=== PATIENT | female | born 1965 | race Caucasian/White ===

== ENCOUNTER 2023-07-08 16:33 | Inpatient (IN) | payer OTHER, MEDICAID, SELFPAY ==
[2023-07-08 12:47] VITALS: BP 128/67
--- NOTE | 2023-07-08 13:44 | ED.SKININJ ---
HPI-Injury
<Aiyana Gould PA-C - Last Filed: 07/08/23 16:16>
General
Chief Complaint: Bite
Source: patient
Exam Limitations: none
Time Seen by Provider: 07/08/23 13:44
Nursing documentation reviewed up to this point in time: agreed with
Travel History
Have you had any contact with someone who has COVID-19?: No
Do you have any symptoms of coronavirus? Fever > 100 degrees, chills, cough, shortness of breath, sore throat, loss of taste or smell, muscle aches, or headache?: No
History of Present Illness-Injury
Initial Injury comments:
57-year-old female with a past medical history of migraines, asthma, hypertension, presenting to the emergency department today with concerns of a dog bite on her right lower extremity. Patient states that 7 days ago, she was trying to break up a
fight between her 2 small dogs when she them and she was bitten by her 1 dog on her right loredo. Patient states that she cleaned at the time, and then she was having a lot of pain, so she went to her urgent care 2 days later. When seen in
urgent care, she was started on Augmentin. She took her fifth dose of today. Patient has some associated chills, and nausea, but no vomiting. She states that she has been eating less, and feels dehydrated. Patient states that since urgent care a
few days ago, her pain has been getting significantly worse, and her wound has started to develop surrounding redness and swelling and now looks ulcerated.
Past History
<Aiyana Gould PA-C - Last Filed: 07/08/23 16:16>
Past History
ED Past Medical History: Asthma, Fibromyalgia, HTN, NIDDM (Diet controlled byfore gastric bypass), Other (Recurrent C. difficile enterocolitis. , Chronic abdominal pain with narcotic dependence, Chronic colitis Cellulitis, kidney stones, UTIs) and
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
ED Past Surgical History: Appendectomy, Bowel resection (Gastric bypass), Cholecystectomy, Gynecological (Hysterectomy with bladder lift), Orthopedic (Right ankle sugery), Urological (Lithotripsy with bilateral ureteral stents November 2016) and Other
(Gastric bypass , ureteroscopy with bilateral ureteral stents placed September 2009. Left renal pelvis lithotripsy October 10, 2009. Abd mesh placed after hernia repair,)
Social History
Tobacco: Former smoker
Alcohol: Occasional
Drug: None
Personal:
Living: with family
Employment: Public assistance
Family History
Family History: Other (One rectal cancer, COPD )
Review of Systems
<AMIRAH Oliveira Last Filed: 07/08/23 16:16>
Review of Systems
All Other Systems: ROS reviewed and negative except as documented in HPI and ROS
Phy Exam
<AMIRAH Oliveira Last Filed: 07/08/23 16:16>
Physical Exam
Physical Exam:
Vitals: Vitals are stable, patient is afebrile
General: Patient appears older than stated age, nontoxic appearing
Skin: there is a 2 cm ulcerated wound on the right anterior leg with surrounding swelling and erythema that extends down to the ankle.
Cardiac: Regular rate and rhythm, no murmurs
Peripheral vascular: Patient has 2+ dorsalis pedis and posterior tibial pulses bilaterally. Patient has some mild lower extremity edema bilaterally.
Pulm: Normal respiratory effort, no wheezes, rales, rhonchi
Abdomen: Patient is no abdominal tenderness.
Musculoskeletal: See skin exam above. Patient has no tibial bony tenderness.
Neuro: AAOx3, CN II-XII intact.
Course
<AMIRAH Oliveira Last Filed: 07/08/23 16:16>
Orders/Labs/Results
Orders:
Orders
07/08/23 14:03
0.9% Sodium Chloride 1000 ml [Nss] 1,000 ml IV BOLUS
HYDROmorphone [Dilaudid] 0.5 mg IV NOW STA
Ondansetron Injectable [Zofran] 4 mg IV NOW STA
07/08/23 14:06
Tetanus/Diphth/Acelpertussis [Adacel] 0.5 ml IM .ONCE ONE
07/08/23 14:33
Complete Blood Count/With Diff Urgent
Comprehensive Metabolic Panel Urgent
07/08/23 14:56
Blood Culture Q30M
YI Source: Blood/Venous
Specimen Description:
07/08/23 15:04
Blood Culture Q30M
YI Source: Blood/Venous
Specimen Description:
07/08/23 16:19
Ampicillin/Sulbactam 3 G [Unasyn] 3 gm 0.9% Sodium Chloride 100 ml [Nss] 100 ml IV NOW
07/08/23 16:24
Admit/Transfer Patient As Directed
Co-Sign Provider:
Level of Care: Inpatient admission
Assign to:: Medical/Surgical
Physician / Group: clare
Diagnosis: dog bite cellulitis
Reason for Hospitalization: dog bite cellulitis
Expected length of stay greater than two midnights?: Yes
ELOS- Estimated Length of Stay in days: 2
I certify the patient meets the requirements for IP care: Yes
07/08/23 16:25
Code Status As Directed
Resuscitation Status: Full Code
Abnormal Lab Results
07/08/23
14:33
RBC 4.09 L 10^6/uL
(4.20-5.40)
Hgb 11.6 L g/dL
(12.0-16.0)
Hct 34.9 L %
(37.0-47.0)
RDW 14.6 H %
(11.5-14.5)
Sodium 134 L mmol/L
(135-145)
Potassium 3.4 L mmol/L
(3.5-5.1)
Creatinine 0.5 L mg/dL
(0.6-1.0)
AST 46 H U/L
(14-36)
07/08/23 14:33
07/08/23 14:33
Vital Signs
Initial and Last Documented VS:
Initial Vital Signs
Temp Pulse Resp BP Pulse Ox
98.0 F 75 18 128/67 100
07/08/23 12:47 07/08/23 12:47 07/08/23 12:47 07/08/23 12:47 07/08/23 12:47
Last Documented Vital Signs
Temp Pulse Resp BP Pulse Ox
98.0 F 75 18 128/67 100
07/08/23 12:47 07/08/23 12:47 07/08/23 12:47 07/08/23 12:47 07/08/23 12:47
<Tomás Peace MD - Last Filed: 07/08/23 16:46>
Orders/Labs/Results
Orders:
Orders
07/08/23 14:03
0.9% Sodium Chloride 1000 ml [Nss] 1,000 ml IV BOLUS
HYDROmorphone [Dilaudid] 0.5 mg IV NOW STA
Ondansetron Injectable [Zofran] 4 mg IV NOW STA
07/08/23 14:06
Tetanus/Diphth/Acelpertussis [Adacel] 0.5 ml IM .ONCE ONE
07/08/23 14:33
Complete Blood Count/With Diff Urgent
Comprehensive Metabolic Panel Urgent
07/08/23 14:56
Blood Culture Q30M
YI Source: Blood/Venous
Specimen Description:
07/08/23 15:04
Blood Culture Q30M
YI Source: Blood/Venous
Specimen Description:
07/08/23 16:19
Ampicillin/Sulbactam 3 G [Unasyn] 3 gm 0.9% Sodium Chloride 100 ml [Nss] 100 ml IV NOW
07/08/23 16:24
Admit/Transfer Patient As Directed
Co-Sign Provider:
Level of Care: Inpatient admission
Assign to:: Medical/Surgical
Physician / Group: clare
Diagnosis: dog bite cellulitis
Reason for Hospitalization: dog bite cellulitis
Expected length of stay greater than two midnights?: Yes
ELOS- Estimated Length of Stay in days: 2
I certify the patient meets the requirements for IP care: Yes
07/08/23 16:25
Code Status As Directed
Resuscitation Status: Full Code
Abnormal Lab Results
07/08/23
14:33
RBC 4.09 L 10^6/uL
(4.20-5.40)
Hgb 11.6 L g/dL
(12.0-16.0)
Hct 34.9 L %
(37.0-47.0)
RDW 14.6 H %
(11.5-14.5)
Sodium 134 L mmol/L
(135-145)
Potassium 3.4 L mmol/L
(3.5-5.1)
Creatinine 0.5 L mg/dL
(0.6-1.0)
AST 46 H U/L
(14-36)
07/08/23 14:33
07/08/23 14:33
Vital Signs
Initial and Last Documented VS:
Initial Vital Signs
Temp Pulse Resp BP Pulse Ox
98.0 F 75 18 128/67 100
07/08/23 12:47 07/08/23 12:47 07/08/23 12:47 07/08/23 12:47 07/08/23 12:47
Last Documented Vital Signs
Temp Pulse Resp BP Pulse Ox
98.0 F 75 18 128/67 100
07/08/23 12:47 07/08/23 12:47 07/08/23 12:47 07/08/23 12:47 07/08/23 12:47
<Aiyana Gould PA-C - Last Filed: 07/08/23 16:16>
MDM/Problems Addressed
Differential Diagnosis Includes:
Differentials include cellulitis, abscess, DVT, erysipelas
MDM/Problems Addressed:
Bite wound
Chronic conditions affecting care: HTN and Asthma
Acute Exacerbation and/or Progression of Chronic Illness: HTN
<Aiyana Gould PA-C - Last Filed: 07/08/23 16:16>
*Pulse Oximetry
Patient hypoxic: no
*Critical Care Note
Total Time (30-74mins, 75-104mins- exclusive of procedures): Not Applicable
Data Reviewed
Review of Other/Old Records Reveals: Records (Reviewed ER physician documentation from 10/15/2022, reviewed ER physician documentation from 04/13/2022) and Discharge Summary (Reviewed discharge planning summary from 10/17/2022)
Source: patient and records
<AMIRAH Oliveira Last Filed: 07/08/23 16:16>
Patient Management
Escalation/DeEscalation of care consider admission/obs:
57-year-old female with a past medical history of migraines, asthma, hypertension, presenting to the emergency department today with concerns of a dog bite on her right lower extremity. Patient was started on Augmentin as an outpatient and received
5 doses, with no improvement. Patient also started to develop systemic signs and symptoms. Patient currently afebrile. Will admit for IV antibiotic therapy, spoke to hospitalist who accepted patient.
<AMIRAH Oliveira Last Filed: 07/08/23 16:16>
Update Note
Update Note:
3:24 pm--reevaluate patient, patient states that her pain has improved, but she still feels uncomfortable.
4:00 pm-- spoke to patient regarding plans for dispo, outpatient flagyl + doxy vs admission for IV antibiotics, patient opting for admission for IV antibiotics due to her significant GI intolerance oral antibiotics with her history of gastric
bypass, as well as her significant discomfort and feeling outpatient therapy.
ED Attending Note
<Aiyana Gould PA-C - Last Filed: 07/08/23 16:16>
-
Portions of this chart may have been created with voice recognition software.� Occasional wrong word or��sound alike� substitutions may have occurred due to the inherent limitations of voice recognition software.
<Tomás Peace MD - Last Filed: 07/08/23 16:46>
ED Attending Note
Patient seen and examined by attending physician: Yes
ED Attending Note:
Patient presents to ED secondary to worsening right lower leg pain with redness and swelling, after accidental dog bite 3 days ago. Patient was seen on the day of the accident at urgent care center, where she was prescribed Augmentin. Patient has
taken total of 5 doses, including this morning. Denies fever, but admits to chills sensation along with intermittent nausea. Denies vomiting or diarrhea. Patient states that she was bitten by her own dog, when she tried to break up the fight
between multiple dogs. Denies any unusual behaviors around dog, whose vaccinations are up-to-date. Patient herself however, does not know when her last tetanus vaccination was. Patient does have history of previous 'sepsis' secondary to
'cellulitis'.
Physical Exam
General: mild distress, not acutely ill. afebrile
Head: nc/at. eomi
Neck: supple. no meningeal signs.
Abdomen: normal bowel sounds. not tender.
Neuro: alert and oriented. no focal neurological deficits
Skin: RLE: healing/ulcerated wound noted, approx 1cm diameter, along anterior aspect with surrounding/erythema, with moderate tenderness.
Psychiatric: well kept. interactive and cooperative
Extremities: no edema. no calf tenderness.
Will check blood work, provide ivf/analgesia, and reassess
Patient will be admitted for cellulitis, secondary to dog bite, failed outpatient therapy.
Discharge Plan
Departure
Patient Disposition: Admit
Date of Disposition: 07/08/23
Time of Disposition: 16:04
Admit to: Med/Surg
Presentation/result/management discussed w/ accepting MD/DO: Hospitalist
Patient with high blood pressure during this ER visit?: Yes
Condition: Good
Discharge Problem:
Cellulitis, Dog bite
Interventions
Interventions:
*Risk Screen - Suicide Last Done: 07/08/23 16:41
*General Assessment Last Done: 07/08/23 16:41
*Neglect/Abuse Screening Last Done: 07/08/23 16:43
*ED COVID-19 Vaccine History Last Done: 07/08/23 16:41
ED-Skin Assessment Last Done: 07/08/23 15:54
[2023-07-08 14:54] LABS: % Basophils 0.4 % (0-2); % Eosinophils 0.3 % (0-6); % Immature Granulocytes 0.2 % (0-0.5); % Monocytes 5.3 % (1.7-9.3); % Neutrophils 68.8 % (42.2-75.2); Absolute Lymphocytes 2.3 10^3/uL (1.2-3.4); Absolute Monocytes 0.5 10^3/uL (0.1-0.6); Absolute Neutrophils 6.2 10^3/uL (1.4-6.5); Hematocrit 34.9 % (37.0-47.0); Hemoglobin 11.6 g/dL (12.0-16.0); Mean Corp Hgb Conc. 33.2 g/dL (33.0-37.0); Mean Corpuscular Hgb 28.4 pg (27.0-31.0); Mean Corpuscular Volume 85.3 fL (81.0-99.0); Nucleated Red Blood Cells % 0 %; Platelet Count 221 10^3/uL (130-400); Red Blood Cell Count 4.09 10^6/uL (4.20-5.40); Red Cell Dist. Width 14.6 % (11.5-14.5)
[2023-07-08] MEDS: NSS 1000 IV (15:06)
[2023-07-08] MEDS: DILAUDID 0.5 MG IV ×2 (15:09→20:58)
[2023-07-08] MEDS: ZOFRAN 4 MG IV (15:09)
[2023-07-08 15:20] LABS: ALT (SGPT) 23 U/L (0-35); AST (SGOT) 46 U/L (14-36); Alkaline Phosphatase 74 U/L (38-126); Blood Urea Nitrogen 12 mg/dl (7-17); Calcium 8.4 mg/dl (8.4-10.2); Carbon Dioxide 24 mmol/L (22-30); Chloride 104 mmol/L (98-107); Glucose 94 mg/dl (70-99); Potassium 3.4 mmol/L (3.5-5.1); Sodium 134 mmol/L (135-145); Total Bilirubin 0.4 mg/dl (0.2-1.3); Total Protein 6.4 g/dl (6.3-8.2); eGFR > 60.00
--- NOTE | 2023-07-08 16:31 | HPS.HSE ---
Addendum entered and electronically signed by Celestine Campbell MD 07/08/23 16:35:
Continue hydroxychloroquine for colitis.
Original Note:
Family Physician
-
Family Physician: Kathy Doherty
Chief Complaint
-
dog bite
History of Present Illness
57-year-old female with past medical history of nephrolithiasis, chronic colitis, C. difficile, anxiety/depression, GERD, hypertension, type 2 diabetes, asthma, migraines, fibromyalgia, DVT, chronic skin granulomas, presenting after dog bite on her
right lower extremity. 6 days ago she was trying to break up a fight between her 2 small dogs when she was bitten by dog on her right loredo. She cleaned the area but was having a lot of pain and went to the urgent care 3 days later. She was
started on Augmentin and has been taking it since then, today is her fifth dose. She start developing some chills and nausea but no vomiting. She has been eating less and feels dehydrated. Pain has been getting significantly worse since yesterday
and wound is started to develop redness and swelling with some discharge.
Denies smoking. Drinks alcohol sometimes.
Medical History
Past Medical History
Past Medical History: Reports Other ( nephrolithiasis, chronic colitis, C. difficile, anxiety/depression, GERD, hypertension, type 2 diabetes, asthma, migraines, fibromyalgia, DVT, chronic skin granulomas)
Past Surgical History: Reports Other (Appendectomy, Bowel resection (Gastric bypass), Cholecystectomy, Gynecological (Hysterectomy with bladder lift), Orthopedic (Right ankle sugery), Urological (Lithotripsy with bilateral ureteral stents November
2016) and Other (Gastric bypass , ureteroscopy with bilateral ureteral stents placed October 08)
Social History
Tobacco: Non-smoker
Alcohol: Occasional
Drug: None
Family History
Family History: Not pertinent
Allergies / Home Medications
Allergies reflects when Allergies were last updated in [facility].
Home Medications with original date entered in [facility]
Allergy/Medication List:
Allergies
Allergy/AdvReac Type Severity Reaction Status Date / Time
adhesive Allergy BANDAIDS-WE Verified 10/15/22 16:12
LTS
ciprofloxacin [From Cipro] Allergy intravenous Verified 10/15/22 16:12
redness,
burn, and
itch
eluxadoline [From Viberzi] Allergy 'AFFECTED Verified 10/15/22 16:12
LIVER',ABD.
PAIN,CHEST
PAIN,SOB
halothane [From Fluothane] Allergy PROBLEMS Verified 10/15/22 16:12
WITH
ANESTHESIA
hydromorphone [Hydromorphone] Allergy Pt has Verified 10/15/22 16:12
addiction
issues
w/hydromorphone
morphine Allergy Hives Verified 10/15/22 16:12
Penicillins Allergy Itching/yeast Verified 10/16/22 12:20
infection;
recent
outpatient
rx for
amox, pcn
succinylcholine Allergy paralyzed Verified 10/15/22 16:12
[Succinylcholine] diaphragm,unable
to
breathe/talk
sumatriptan [From Imitrex] Allergy lost Verified 10/15/22 16:12
vision in
both eyes
Cephalosporins AdvReac yeast Verified 10/16/22 12:17
infection
with oral
cephalosporin;
has
tolerated
many
DUST, MOLD, POLLEN Allergy sneezing, Uncoded 10/15/22 16:12
itchy nose
and eyes
watering
environmental Allergy sneezing, Uncoded 10/15/22 16:12
itching,watery
eyes
pseudocholinesterase def Allergy anesthesia Uncoded 10/15/22 16:12
problems
Home Medications
furosemide 20 mg tablet 20 mg PO DAILY Fluid retention/Swelling 11/24/16
pantoprazole 40 mg tablet,delayed release 40 mg PO BID Gastrointestinal issue 11/24/16
budesonide 3 mg capsule,delayed,extended release 6 mg PO DAILY Gastrointestinal issue 04/28/17
adalimumab 40 mg/0.8 mL subcutaneous syringe kit (Humira) 40 mg SC TH Autoimmune disorder 09/13/17
famotidine 20 mg tablet 20 mg PO BID Gastrointestinal issue 09/30/20
mesalamine 400 mg capsule (with delayed release tablets inside) (Delzicol) 800 mg PO BID Gastrointestinal issue 09/30/20
Lactobac no.2-Bifidobac no.1-S. thermo 112.5 billion cell capsule (High Potency Probiotic) 1 cap PO TID Supplement 10/03/20
multivitamin with folic acid 400 mcg tablet (Tab-A-Madiha) 1 tab PO TID Supplement 10/03/20
tramadol 50 mg tablet 50 mg PO DAILY Pain 10/03/20
cetirizine 10 mg tablet (Zyrtec) 10 mg PO HS 10/15/22
hydroxychloroquine 200 mg tablet 200 mg PO DAILY 10/15/22
tetracycline 500 mg capsule 500 mg PO DAILY 07/08/23
Review of Systems
-
History Source: Patient
A 12 point ROS was completed and negative except as noted: Yes
Constitutional: Reports No Symptoms
EENT: Reports No Symptoms
Respiratory: Reports No Symptoms
Cardiac: Reports No Symptoms
Abdomen/GI: Reports No Symptoms
: Reports No Symptoms
Musculoskeletal: Reports No Symptoms
Skin: Reports See HPI
Neurological: Reports No Symptoms
Endocrine: Reports No Symptoms
Hematologic/Lymphatic: Reports No Symptoms
Psych: Reports No Symptoms
Physical Exam
Vital Signs
Vital Signs
Temp Pulse Resp BP Pulse Ox
98.0 F 75 18 128/67 100
07/08/23 12:47 07/08/23 12:47 07/08/23 12:47 07/08/23 12:47 07/08/23 12:47
Physical Exam
General: Well Developed, Well Nourished and No Apparent Distress
HEENT: NormoCephalic, Moist mucous membranes and Atraumatic
Respiratory: Clear
Cardiac: S1/S2 and Regular Rhythm; No Murmur or Rub
GI: Soft, Non Tender, Non Distended and Normal Bowel Sounds; No Organomegaly
Rectal: Deferred by Provider
Musculoskeletal: No Clubbing, No Cyanosis and No Edema
Skin: No Rash
Neuro: Nonfocal/grossly intact and Other (right loredo wound and surrounding erythema )
Laboratory Results
-
07/08/23 14:33
07/08/23 14:33
Laboratory Results
Total Bilirubin 0.4 mg/dl (0.2-1.3) 07/08/23 14:33
AST 46 U/L (14-36) H 07/08/23 14:33
ALT 23 U/L (0-35) 07/08/23 14:33
Alkaline Phosphatase 74 U/L (38-126) 07/08/23 14:33
Data Reviewed
-
Lab Data: Labs Reviewed by me
Old Records: Reviewed
Impression/Plan
-
IMPRESSION:
PLAN:
# Right lower extremity dog bite wound with cellulitis
-IV fluids given
-Tetanus vaccine given
-Check blood cultures
-Unasyn
-Continue tramadol and add Dilaudid for pain
Essential hypertension
Type 2 diabetes
-Diet controlled
GERD
-Continue famotidine, Protonix
Asthma
History of migraines
Fibromyalgia
-Continue tramadol
History of DVT
Anxiety/depression
History of nephrolithiasis
-Takes Lasix for increased urine output, continue
Chronic colitis
-Continue budesonide
-Continue mesalamine
-On Humira
-Continue probiotic
History of C. difficile
Allergies
-Continue cetirizine
Chronic anemia
-hemoglobin stable
Chronic skin granulomas
-Hold tetracycline while on Unasyn
Full code
DVT prophylaxis�heparin
Regular diet
[2023-07-08] MEDS: UNASYN IV ×2 (16:38→22:24)
[2023-07-08 16:42] VITALS: BMI 24.6
[2023-07-08 16:45] VITALS: BP 105/64
[2023-07-08 17:00] VITALS: BP 110/51
[2023-07-08 18:00] VITALS: BP 110/50
[2023-07-08 18:40] VITALS: BP 128/59; BMI 24.9
--- NOTE | 2023-07-08 18:40 | PTCARENOTE ---
Received pt from ER via stretcher, accompanied by ER staff. Pt AAOx3, HERNANDEZ well, ambulatory to bed; gait steady. VSS. On room air- pulse ox100%. Abd soft, to start reg diet. Pt voided in BR upon arrival to unit. Pt with +1 edema BLE; Rt Lower
leg reddened; scabbed area Rt loredo- no drainage noted; site cleaned with NSS, silicone foam dsg applied. Oriented to 4east, currently resting comfortably. Will continue to monitor.
[2023-07-08] MEDS: ASACOL, DELZICOL DR 800 MG PO (20:47)
[2023-07-08] MEDS: PEPCID 20 MG PO (20:48)
[2023-07-08] MEDS: PROTONIX 40 MG PO (20:48)
[2023-07-08] MEDS: FLUSH (NSS) 1 FLUSH IV (20:58)
[2023-07-08] MEDS: ADACEL 0.5 ML IM (22:18)
[2023-07-08] MEDS: VISBIOME 1 CAP PO (22:23)
[2023-07-08] MEDS: THERAGRAN 1 TABLET PO (22:24)
[2023-07-08] MEDS: ZYRTEC 10 MG PO (22:24)
[2023-07-08 23:00] VITALS: BP 132/53
[2023-07-09] MEDS: DILAUDID 0.5 MG IV ×2 (01:11→05:34)
[2023-07-09] MEDS: UNASYN IV ×4 (04:37→23:03)
[2023-07-09 07:55] VITALS: BP 104/92
[2023-07-09 08:27] LABS: % Basophils 0.5 % (0-2); % Eosinophils 1.3 % (0-6); % Immature Granulocytes 0.2 % (0-0.5); % Lymphocytes 36.1 % (20.5-51.1); % Monocytes 6.6 % (1.7-9.3); % Neutrophils 55.3 % (42.2-75.2); Absolute Basophils 0.1 10^3/uL (0-0.2); Absolute Eosinophils 0.1 10^3/uL (0-0.7); Absolute Lymphocytes 3.5 10^3/uL (1.2-3.4); Absolute Monocytes 0.6 10^3/uL (0.1-0.6); Absolute Neutrophils 5.3 10^3/uL (1.4-6.5); Hematocrit 32.4 % (37.0-47.0); Hemoglobin 10.5 g/dL (12.0-16.0); Mean Corp Hgb Conc. 32.4 g/dL (33.0-37.0); Mean Corpuscular Hgb 28.6 pg (27.0-31.0); Mean Corpuscular Volume 88.3 fL (81.0-99.0); Mean Platelet Volume 9.3 fL (7.4-10.4); Nucleated Red Blood Cells % 0 %; Platelet Count 207 10^3/uL (130-400); Red Blood Cell Count 3.67 10^6/uL (4.20-5.40); Red Cell Dist. Width 14.7 % (11.5-14.5); White Blood Cell Count 9.6 10^3/uL (4.8-10.8)
[2023-07-09 09:06] LABS: ALT (SGPT) 22 U/L (0-35); AST (SGOT) 46 U/L (14-36); Alkaline Phosphatase 67 U/L (38-126); Blood Urea Nitrogen 9 mg/dl (7-17); Carbon Dioxide 29 mmol/L (22-30); Chloride 99 mmol/L (98-107); Estimated Creatinine Clearance 95 ml/min; Glucose 86 mg/dl (70-99); Potassium 2.9 mmol/L (3.5-5.1); Sodium 134 mmol/L (135-145); Total Bilirubin 0.3 mg/dl (0.2-1.3); Total Protein 5.1 g/dl (6.3-8.2); eGFR > 60.00
[2023-07-09] MEDS: ASACOL, DELZICOL DR 800 MG PO ×2 (09:16→20:12)
[2023-07-09] MEDS: VISBIOME 1 CAP PO ×3 (09:16→21:42)
[2023-07-09] MEDS: ENTOCORT EC 6 MG PO (09:16)
[2023-07-09] MEDS: ULTRAM 50 MG PO (09:16)
[2023-07-09] MEDS: THERAGRAN 1 TABLET PO ×3 (09:17→21:42)
[2023-07-09] MEDS: LASIX 20 MG PO (09:17)
[2023-07-09] MEDS: PLAQUENIL 200 MG PO (09:17)
[2023-07-09] MEDS: PEPCID 20 MG PO ×2 (09:18→20:12)
[2023-07-09] MEDS: PROTONIX 40 MG PO ×2 (09:18→20:12)
--- NOTE | 2023-07-09 11:00 | CM ---
Patient seen bedside, initial assessment completed. Patient reports she lives with her spouse, mother in law, and two children in a two story home, two steps to enter. Patient reports history of [facility] in past, denies SNF. Patient denies the use of
DME. Patient confirms PCP Kathy Doherty, pharmacy [facility]. CM will continue to follow for discharge planning needs.
Plan; home no needs anticipated.
--- NOTE | 2023-07-09 14:13 | W.PN.HOSP.TC ---
Today's Communication/Plan
-
cotninue iv unasyn
adjust pain meds
tibial xr
Assessment / Plan
Assessment / Plan
# Right lower extremity dog bite wound with cellulitis
-Tetanus vaccine given
-f/u blood cs
-Tibial xr did not show any bone destruction
-continue unasyn,
-Discussed with patient that will contact ID but xr clear and will hold.
-Stop IV dilaudid, switch to oral oxycodone.
Chronic colitis
-Continue budesonide
-Continue mesalamine
-On Humira
-Continue probiotic
Chronic skin granulomas
-on humira/plaquenil, continue
-resume tetracycline back at discharge
H/o of narcotic abuse
-limit narc use, patient does not want NSAID
Essential hypertension
Type 2 diabetes
GERD
Asthma
History of migraines
Fibromyalgia
History of DVT
Anxiety/depression
History of nephrolithiasis
History of C. difficile
Allergies
Chronic anemia
Full code
DVT prophylaxis�heparin
Anticipated Discharge: Within 24 hours
Subjective/Interval History
-
Date of Service: July 09, 2023
complains of pain in the leg
no fever overnight
Objective Data
-
Labs:
Laboratory Results
07/09/23
07:39
WBC 9.6
Hgb 10.5 L
Hct 32.4 L
Plt Count 207
Sodium 134 L
Potassium 2.9 L
Chloride 99
Carbon Dioxide 29
BUN 9
Creatinine 0.3 L
Glucose 86
Calcium 8.0 L
Total Bilirubin 0.3
AST 46 H
ALT 22
Alkaline Phosphatase 67
Vital Signs:
Vital Signs
Temp Pulse Resp BP Pulse Ox
98.3 F 72 18 102/42 99
07/09/23 07:55 07/09/23 07:55 07/09/23 07:55 07/09/23 09:17 07/09/23 07:55
I&O
07/08/23 07/09/23 07/10/23
06:59 06:59 06:59
Intake Total 120 / 120
Balance 120 / 120
Review of Systems
-
Cardiac: Reports No Symptoms
Abdomen/GI: Reports No Symptoms
Breast: Reports No Symptoms
Physical Exam
-
General: No Apparent Distress
HEENT: PERRLA
Respiratory: Clear to Auscultation; Negative Wheezes
Cardiac: S1/S2
GI: Soft, Nontender and Nondistended
Musculoskeletal: Other (Right mid tibial level dog bite site, swelling/erythema without any problems)
Skin: Warm and Dry; Negative Rash
Neuro: Awake, Alert, Oriented and No Motor Deficits
Psych: Calm
[2023-07-09] MEDS: ROXICODONE 10 MG PO ×2 (14:30→20:31)
[2023-07-09 15:55] VITALS: BP 124/57
[2023-07-09] MEDS: KCL 270 MEQ IV (16:13)
[2023-07-09] MEDS: ZYRTEC 10 MG PO (21:42)
[2023-07-09 23:15] VITALS: BP 119/47
[2023-07-10] MEDS: ROXICODONE 10 MG PO ×5 (01:45→21:36)
[2023-07-10] MEDS: UNASYN IV ×4 (04:26→21:37)
[2023-07-10 07:00] VITALS: BP 120/53
[2023-07-10 08:01] LABS: Hematocrit 34.8 % (37.0-47.0); Hemoglobin 11.4 g/dL (12.0-16.0); Mean Corp Hgb Conc. 32.8 g/dL (33.0-37.0); Mean Corpuscular Hgb 28.6 pg (27.0-31.0); Mean Corpuscular Volume 87.2 fL (81.0-99.0); Mean Platelet Volume 9.2 fL (7.4-10.4); Platelet Count 202 10^3/uL (130-400); Red Blood Cell Count 3.99 10^6/uL (4.20-5.40); Red Cell Dist. Width 14.7 % (11.5-14.5); White Blood Cell Count 10.8 10^3/uL (4.8-10.8)
[2023-07-10 08:30] LABS: Blood Urea Nitrogen 9 mg/dl (7-17); Calcium 8.6 mg/dl (8.4-10.2); Carbon Dioxide 30 mmol/L (22-30); Chloride 100 mmol/L (98-107); Estimated Creatinine Clearance 95 ml/min; Glucose 92 mg/dl (70-99); Sodium 136 mmol/L (135-145); eGFR > 60.00
[2023-07-10] MEDS: PROTONIX 40 MG PO ×2 (09:20→21:32)
[2023-07-10] MEDS: ENTOCORT EC 6 MG PO (09:20)
[2023-07-10] MEDS: ASACOL, DELZICOL DR 800 MG PO ×2 (09:20→21:31)
[2023-07-10] MEDS: LASIX 20 MG PO (09:20)
[2023-07-10] MEDS: PLAQUENIL 200 MG PO (09:21)
[2023-07-10] MEDS: VISBIOME 1 CAP PO ×3 (09:21→21:32)
[2023-07-10] MEDS: THERAGRAN 1 TABLET PO ×3 (09:21→21:32)
[2023-07-10] MEDS: PEPCID 20 MG PO ×2 (09:21→21:32)
--- NOTE | 2023-07-10 09:30 | PTCARENOTE ---
Pt refusing heparin SC; stated 'I don't need that'; purpose of med in preventing blood clots reviewed with pt; still refusing; stated 'I get up and walk around'. Dr. Holloway notified.
--- NOTE | 2023-07-10 10:13 | CM ---
Patient seen at bedside. Patient states that she does not anticipate any needs at discharge but feels her leg is 'redder'. CM will continue to follow for discharge home when medically appropriate.
Plan; home with VN vs home with no needs.
[2023-07-10] MEDS: FLUSH (NSS) 1 FLUSH IV ×2 (11:50→16:42)
--- NOTE | 2023-07-10 14:29 | W.PN.HOSP.TC ---
Today's Communication/Plan
-
continue Unasyn, if pain attenuates potential dc tomorrow, if not would consider further evaluation of wound
wound care consult
Bactroban to wound
Assessment / Plan
Assessment / Plan
# Right lower extremity dog bite wound with cellulitis
-Tetanus vaccine given
-f/u blood cs
-Tibial xr did not show any bone destruction
-continue unasyn,
-Discussed with patient that will contact ID but xr clear and will hold.
-Stop IV dilaudid, switch to oral oxycodone, still with a lot of pain and requiring very freq dosing of Oxycodone. Unclear why pt is having so much pain. Consider CT scan of leg if pt persists at this level. Would not dc with this level of pain.
Could level of pain be related to use of immunosuppressants (Humira/plaquenil)
wound care consult
Chronic colitis
-Continue budesonide
-Continue mesalamine
-On Humira
-Continue probiotic
Chronic skin granulomas
-on humira/plaquenil, continue
-resume tetracycline back at discharge
H/o of narcotic abuse
-limit narc use, patient does not want NSAID
Essential hypertension
Type 2 diabetes
GERD
Asthma
History of migraines
Fibromyalgia
History of DVT
Anxiety/depression
History of nephrolithiasis
History of C. difficile
Allergies
Chronic anemia
Full code
DVT prophylaxis�heparin
Anticipated Discharge: 24 - 48 hours
Subjective/Interval History
-
Date of Service: July 10, 2023
Still with a lot of leg pain
Objective Data
-
Labs:
Laboratory Results
07/10/23
07:32
WBC 10.8
Hgb 11.4 L
Hct 34.8 L
Plt Count 202
Sodium 136
Potassium 4.0 D
Chloride 100
Carbon Dioxide 30
BUN 9
Creatinine 0.4 L
Glucose 92
Calcium 8.6
Vital Signs:
Vital Signs
Temp Pulse Resp BP Pulse Ox
98.5 F 68 18 120/53 100
07/10/23 07:00 07/10/23 09:20 07/10/23 07:00 07/10/23 09:20 07/10/23 09:16
I&O
07/09/23 07/10/23 07/11/23
06:59 06:59 06:59
Intake Total 120 / 120 900 / 900
Balance 120 / 120 900 / 900
Review of Systems
-
History Source: Patient and Coordinated Provider
Constitutional: Reports No Symptoms; Denies Fever
EENT: Reports No Symptoms Reported
Respiratory: Reports No Symptoms
Cardiac: Reports No Symptoms
Abdomen/GI: Reports No Symptoms
Skin: Reports Sores (post dog bite, still with a lot of pain at site)
Physical Exam
-
General: Well Developed, Well Nourished and No Apparent Distress
HEENT: Normocephalic, Atraumatic and Moist Mucous Membranes
Respiratory: Clear to Auscultation; Negative Wheezes, Rales or Rhonchi
Cardiac: Regular Rhythm and S1/S2
GI: Nontender and Nondistended
Skin: Rash (rt leg dog bite, jinny wound cellulitis essentially resolved, wound itself looks clean)
Neuro: Awake, Alert and Oriented
--- NOTE | 2023-07-10 15:15 | WOUNDNOTE ---
Trinh HERNANDEZ (LOWER)
--- NOTE | 2023-07-10 15:17 | WOUNDNOTE ---
[facility] RN note: Patient admitted with RLE cellulitis from dog bite. Patient dog bit her about 1 week ago. She stated her dogs are up on their shots.
See H&P for complete history.
PMH: nephrolithiasis, chronic colitis, C diff, anxiety/depression, GERD, HTN, DM, asthma, fibromyalgia, DVT, chronic skin granulomas, gastric bypass, lithotripsy, ureteral stents 2017.
Wound Location and type/assessment: Patient admitted with: R lower loredo dermal dog bite, pink/scabbed with surrounding erythema and trace edema with tenderness, scant ss gold tinged drainage. +Palpable pedal pulses.
Appetite: good.
Pressure redistribution devices in place: [employer] Accumax. Patient moves self and is ambulatory. RLE elevated on pillow.
Plan: RLE dressing changed. Discussed with ANY Martel.
Will confirm orders with hospitalist.
Care plan to be updated and will follow as needed.
--- NOTE | 2023-07-10 16:08 | PTCARENOTE ---
Pt AAO x3, HERNANDEZ well, ambulatory in rom/to BR; jorge well. VSS. On room air- pulse ox 99%. Jorge reg diet. Voiding in BR without difficulty. Rt lower leg foam dsg intact, pt c/o discomfort at site- good effect with Po Roxicodone. Resting in bed at
present. Will continue to monitor.
[2023-07-10 16:37] VITALS: BP 94/46
[2023-07-10] MEDS: BACTROBAN 2% OINTMENT 1 APPLIC TOPICAL (16:41)
[2023-07-10] MEDS: ZYRTEC 10 MG PO (21:32)
[2023-07-10 23:54] VITALS: BP 110/50
[2023-07-11] MEDS: ROXICODONE 10 MG PO ×2 (03:00→09:41)
[2023-07-11] MEDS: UNASYN IV ×2 (03:46→10:53)
[2023-07-11 07:30] VITALS: BP 114/44
[2023-07-11 09:01] LABS: Hematocrit 33.2 % (37.0-47.0); Hemoglobin 10.7 g/dL (12.0-16.0); Mean Corp Hgb Conc. 32.2 g/dL (33.0-37.0); Mean Corpuscular Hgb 28.6 pg (27.0-31.0); Mean Corpuscular Volume 88.8 fL (81.0-99.0); Mean Platelet Volume 9.6 fL (7.4-10.4); Platelet Count 204 10^3/uL (130-400); Red Blood Cell Count 3.74 10^6/uL (4.20-5.40); Red Cell Dist. Width 14.8 % (11.5-14.5); White Blood Cell Count 10.5 10^3/uL (4.8-10.8)
[2023-07-11 09:12] LABS: Erythrocyte Sed Rate 19 mm/hour (0-20)
--- NOTE | 2023-07-11 09:12 | W.PN.HOSP.TC ---
Addendum entered and electronically signed by Maged Jefferson MD 07/22/23 16:41:
Documentation addendum placed in response of LAYO query
Hypokalemia - replacement as needed
Original Note:
Today's Communication/Plan
-
d/c home
Assessment / Plan
Assessment / Plan
# Right lower extremity dog bite wound with cellulitis
-Tetanus vaccine given
-f/u blood cs
-Tibial xr did not show any bone destruction
-Examination remains benign with no significant swelling. Patient pain is disproportionate to wound size and location.
-Maintain on IV unasyn, Providing short course of oral augmentin at discharge.
# Chronic colitis
-Continue budesonide
-Continue mesalamine
-On Humira
-Continue probiotic
# Chronic skin granulomas
-on humira/plaquenil, continue
-resume tetracycline back at discharge
# H/o of narcotic abuse - unclear
-limit narc use, patient does not want NSAID
Essential hypertension
Type 2 diabetes
GERD
Asthma
History of migraines
Fibromyalgia
History of DVT
Anxiety/depression
History of nephrolithiasis
History of C. difficile
Allergies
Chronic anemia
Full code
DVT prophylaxis�heparin
More than 30 minutes spent in discharge including
Final examination of the patient
Summarizing hospital stay
Instructions for continuing care to all relevant caregivers
Preparation of discharge records, prescriptions, and referral forms
Total time spent (in minutes): 38 mins
Anticipated Discharge: Today
Subjective/Interval History
-
Date of Service: July 11, 2023
no new issues
Objective Data
-
Labs:
Laboratory Results
07/11/23
07:52
WBC 10.5
Hgb 10.7 L
Hct 33.2 L
Plt Count 204
Sodium Pending
Potassium Pending
Chloride Pending
Carbon Dioxide Pending
BUN Pending
Creatinine Pending
Glucose Pending
Calcium Pending
Total Bilirubin Pending
AST Pending
ALT Pending
Alkaline Phosphatase Pending
Vital Signs:
Vital Signs
Temp Pulse Resp BP Pulse Ox
98.2 F 65 18 114/44 98
07/11/23 07:30 07/11/23 07:30 07/11/23 07:30 07/11/23 07:30 07/11/23 07:30
I&O
07/10/23 07/11/23 07/12/23
06:59 06:59 06:59
Intake Total 900 / 900 2099
Balance 900 / 900 2099
Review of Systems
-
Respiratory: Reports No Symptoms
Cardiac: Reports No Symptoms
Abdomen/GI: Reports No Symptoms
Physical Exam
-
General: No Apparent Distress
HEENT: Negative Oxygen
Skin: Other (rt leg dog bite,mid tibial level, no draiange, severe tenderness on exam)
Neuro: Awake, Alert and Oriented
[2023-07-11] MEDS: LASIX 20 MG PO (09:32)
[2023-07-11] MEDS: ASACOL, DELZICOL DR 800 MG PO (09:32)
[2023-07-11] MEDS: PROTONIX 40 MG PO (09:33)
[2023-07-11] MEDS: ENTOCORT EC 6 MG PO (09:33)
[2023-07-11] MEDS: VISBIOME 1 CAP PO (09:33)
[2023-07-11] MEDS: BACTROBAN 2% OINTMENT 1 APPLIC TOPICAL (09:34)
[2023-07-11] MEDS: PLAQUENIL 200 MG PO (09:34)
[2023-07-11] MEDS: PEPCID 20 MG PO (09:34)
[2023-07-11] MEDS: THERAGRAN 1 TABLET PO (09:34)
[2023-07-11 09:46] LABS: ALT (SGPT) 18 U/L (0-35); AST (SGOT) 23 U/L (14-36); Alkaline Phosphatase 59 U/L (38-126); Blood Urea Nitrogen 11 mg/dl (7-17); Calcium 7.9 mg/dl (8.4-10.2); Carbon Dioxide 29 mmol/L (22-30); Chloride 101 mmol/L (98-107); Estimated Creatinine Clearance 95 ml/min; Glucose 89 mg/dl (70-99); Potassium 4.1 mmol/L (3.5-5.1); Sodium 132 mmol/L (135-145); Total Bilirubin 0.2 mg/dl (0.2-1.3); Total Protein 5.1 g/dl (6.3-8.2); eGFR > 60.00
--- NOTE | 2023-07-11 10:19 | CM ---
Patient seen bedside. IMM reviewed, signed, placed in patients chart. Patient reports she has transportation home but not until this afternoon. CM will continue to follow for discharge planning needs.
Plan; home no needs.
--- NOTE | 2023-07-11 10:40 | PN.CDI ---
CDI
- -
CDI:
Physician Documentation Request
Admit Date: 07/08/23 16:33
Dear Doctor Ronny,
Patient admitted for cellulitis.
07/07 Potassium level: 3.4
07/08 Potassium level: 2.9
07/08 Potassium chloride 40 meq IV administered
Based on the above, could you clarify in the progress notes, the appropriate diagnosis, if significant, that supports the above abnormalities and additional evaluation, monitoring and/or treatment rendered:
Hypokalemia
Abnormal lab value insignificant
Other
Use of terms such as suspected, likely, concern for, or probable (associated with a specific diagnosis that is being evaluated, monitored, or treated as if it exists) are acceptable and can be coded in the inpatient setting, when documented at the
time of discharge.
Thank you,
Yocasta Narayanan RN, BSN
CDI Specialist
Available via [employer] text
Please use your independent medical judgment in providing your response.
[2023-07-11 13:44] VITALS: BP 103/59
--- NOTE | 2023-07-12 15:55 | W.DCSUMMARY ---
Discharge Summary
Discharge Data
Date of Admission: 07/08/23
Date of Discharge: 07/11/23
-
Pending Results: No
Hospital Course
Discharging Physician : Dr Maged Jefferosn
Disposition : Home
Primary care physician : Dr. Kathy Doherty
Principal Discharge diagnosis :
Right loredo dog bite and related cellulitis
Chronic Discharge diagnosis :
Essential hypertension
Tpd-hapsptt-wymcxxkpx mellitus
Gastroesophageal reflux disease
Asthma
History of migraine
History of deep venous thrombosis
Anxiety/depression
History of nephrolithiasis
Chronic colitis on budesonide therapy
History clostridium Difficile infection
Chronic skin granuloma
Hospital Course :
Patient is a 57 year old female with above mentioned past medical history came to ER after having a dog bite wound on right leg. Patient apparently was recovered between 2 small dose of the patient was bitten by one of the dog on her right loredo.
Patient started to having significant pain in the area and was in urgent care 3 days after and was provided oral Augmentin therapy. In ER evaluation showing patient having small quarter size area of superficial erythema followed by swelling.
Tetanus shot was given and patient was started on IV Unasyn. Blood cultures were collected and were negative till discharge. Lab evaluation did not show any systemic response. X-ray of involved area ruled out any periosteal changes. Patient pain
continued to remain disproportionate to size and location of the injury. Patient was provided oral narcotic therapy. After improvement of symptoms patient was transition back to oral Augmentin therapy. Patient to follow-up with family physician
in office in 1 week.
Important imaging findings :
None
Procedure findings :
None
Discharge Plan
-
Patient Disposition: Home (Routine Discharge)
Discharge Diagnosis/Procedures: Right leg dog bite wound
Condition: Fair
Diet: Regular
Activity: As tolerated
Driving Restrictions: No driving for 24 hours
Bathing Restrictions: OK to Shower
Activity Restrictions/Additional Instructions:
Wound Care Instructions
RLE wound-Clean with saline or soap and water, Bactroban ointment, cover with non stick dressing (i.e. silicone border foam or non stick gauze pad). Change daily and as needed for loosened dressing.
Follow up with your primary care physician.
Follow up at wound care center if needed, call for an appointment.
Referrals:
Kathy Doherty MD [Family Provider] - in one week
Prescriptions:
New
amoxicillin-pot clavulanate 875-125 mg tablet
1 tab PO Q12H Qty: 10 0RF
Triple Antibiotic 3.5mg-400 unit- 5,000 unit/gram ointment
1 applic topical BID Qty: 14 0RF
oxycodone 5 mg tablet
5 mg PO Q8H PRN (Reason: Mod sev pain) Qty: 10 0RF
Continued
pantoprazole 40 MG tablet,delayed release (DR/EC)
40 mg PO BID
furosemide 20 MG tablet
20 mg PO DAILY
budesonide 3 MG capsule,delayed,extend.release
6 mg PO DAILY
Humira 40 MG/0.8 ML syringe kit
40 mg SC TH
famotidine 20 MG tablet
20 mg PO BID
mesalamine [Delzicol] 400 MG capsule (with del rel tablets)
800 mg PO BID
tramadol 50 MG tablet
50 mg PO DAILY
Patient Comments:
07/08/2023: las filled 06/18/23, 30 tabs for 30 days from [facility]
High Potency Probiotic 1 CAP capsule
1 cap PO TID
multivitamin with folic acid [Tab-A-Madiha] 1 TABLET tablet
1 tab PO TID
cetirizine [Zyrtec] 10 mg Tablet
10 mg PO HS
hydroxychloroquine 200 mg tablet
200 mg PO DAILY
tetracycline 500 mg capsule
500 mg PO DAILY
Discharge Orders:
Discharge Patient (As Directed); Ordered 07/11/23
Ordered By: Maged Jefferson
Discharge Date and Time
Discharge Date/Time: 07/11/23 13:57
== END 2023-07-11 13:57 | disposition home or self-care (01) | DRG 603 ==
LOC: 4 EAST ACU 16:33
PROVIDERS: Physician Assistant; ADMITTING PHYSICIAN Hospitalist; ATTENDING PHYSICIAN Hospitalist; EMERGENCY PHYSICIAN Emergency Medicine; FAMILY PHYSICIAN Family Medicine
DX: L03.90 Cellulitis, unspecified (principal); A04.71 Enterocolitis due to Clostridium difficile, recurrent; W54.0XXA Bitten by dog, initial encounter; I10 Essential (primary) hypertension; Z23 Encounter for immunization; E11.9 Type 2 diabetes mellitus without complications; K21.9 Gastro-esophageal reflux disease without esophagitis; J44.89 Other specified chronic obstructive pulmonary disease; M79.7 Fibromyalgia; F32.A Depression, unspecified; F41.9 Anxiety disorder, unspecified; E87.6 Hypokalemia
CPT/HCPCS: 73590; 80048; 80053; 82248; 85025; 85027; 85652; 87040; 87070; 90715; 93005; 96361; 96374; 96375; 99285

== ENCOUNTER 2023-08-28 17:26 | Emergency (ER) | payer OTHER, MEDICAID, SELFPAY ==
[2023-08-28 17:32] VITALS: BP 170/75
[2023-08-28 20:46] VITALS: BMI 28.5
[2023-08-28 20:50] VITALS: BP 146/73
[2023-08-28 21:00] VITALS: BP 150/60
[2023-08-28 21:45] LABS: % Basophils 0.6 % (0-2); % Eosinophils 1.2 % (0-6); % Immature Granulocytes 0.2 % (0-0.5); % Lymphocytes 33.9 % (20.5-51.1); % Monocytes 7.4 % (1.7-9.3); % Neutrophils 56.7 % (42.2-75.2); Absolute Eosinophils 0.1 10^3/uL (0-0.7); Absolute Lymphocytes 2.2 10^3/uL (1.2-3.4); Absolute Monocytes 0.5 10^3/uL (0.1-0.6); Absolute Neutrophils 3.7 10^3/uL (1.4-6.5); Hematocrit 34.4 % (37.0-47.0); Hemoglobin 11.7 g/dL (12.0-16.0); Mean Corpuscular Hgb 28.3 pg (27.0-31.0); Mean Corpuscular Volume 83.3 fL (81.0-99.0); Mean Platelet Volume 9.3 fL (7.4-10.4); Nucleated Red Blood Cells % 0 %; Platelet Count 195 10^3/uL (130-400); Red Blood Cell Count 4.13 10^6/uL (4.20-5.40); Red Cell Dist. Width 13.6 % (11.5-14.5); White Blood Cell Count 6.5 10^3/uL (4.8-10.8)
[2023-08-28 21:56] LABS: INR 1.15; PT 14.8 Sec (11.4-14.6)
[2023-08-28 21:57] LABS: APTT 30.3 Sec (23.4-35.0)
[2023-08-28] MEDS: PROTONIX IV 40 MG IV (21:57)
--- NOTE | 2023-08-28 21:57 | ED.GENMED ---
History of Present Illness
General
Chief Complaint: Abdominal Pain
Source: patient
Exam Limitations: none
Time Seen by Provider: 08/28/23 21:13
Travel History
Have you had any contact with someone who has COVID-19?: No
Do you have any symptoms of coronavirus? Fever > 100 degrees, chills, cough, shortness of breath, sore throat, loss of taste or smell, muscle aches, or headache?: No
History of Present Illness
History of Present Illness:
This is a 57 year old female that comes in with c/o abd pain. States that at the end of July on that last Friday of the month she started with lower abd pain. States that the next day on Friday she started with rectal bleeding. States that this
continued till August 21 and she called the GI specialist. States that they wanted to do a Colonoscopy but she was told to go to the hospital to r/o a diverticulitis or colitis first. Patient went to [place] and had a CT scan. States that she was
told that she was full of stool. States that the IV dye went into her arm and they wanted to do another CT scan. States that she was admitted. On that Friday they repeat the Ct scan and she never heard any diagnosis. States that she was told that
her Thyroid was full and she was still having abd pain. States that she was also nauseated. States that she has pain on the left side of the abd near her ribs. Today the GI wanted to do the Colonoscopy and the Hospitalist would not let her. States
that last night she started vomiting and so today they were not doing anything to help her so she signed out AMA. States that she has a low grade fever and burning in her chest. States that she also has a headache. Denies any chills, SOB, diarrhea,
dizziness, urinary burning.
Past History
Past History
ED Past Medical History: Asthma, Fibromyalgia, GERD, HTN, NIDDM (Diet controlled byfore gastric bypass), Psychiatric (Depression), Other (Recurrent C. difficile enterocolitis. , Chronic abdominal pain with narcotic dependence, Chronic colitis,
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
Ovarian cyst, Cellulitis, anemia, )
ED Past Surgical History: Appendectomy, Bowel resection (Gastric bypass), Cholecystectomy, Gynecological (Hysterectomy with bladder lift), Orthopedic (Right ankle sugery), Urological (Lithotripsy with bilateral ureteral stents November 2016) and Other
(Gastric bypass , ureteroscopy with bilateral ureteral stents placed September 2009. Left renal pelvis lithotripsy October 10, 2009. Abd mesh placed after hernia repair,)
Social History
Tobacco: Former smoker
Alcohol: Occasional
Drug: None
Personal:
Living: with family
Employment: Public assistance
Family History
Family History: Other (One rectal cancer, COPD )
Review of Systems
Review of Systems
All Other Systems: ROS reviewed and negative except as documented in HPI and ROS
Constitutional: Reports fever; Denies chills
EENT: Reports no symptoms
Respiratory: Denies cough or trouble breathing
Cardiac: Reports other (Burning in chest)
ABD/GI: Reports abdominal pain, nausea and vomiting; Denies diarrhea
: Reports no symptoms; Denies dysuria, frequency or urgency
Musculoskeletal: Reports no symptoms
Skin: Reports no symptoms
Neurological: Reports headache; Denies dizzy
Psychiatric: Reports no symptoms
Phy Exam
General Physical Exam
General Presentation: no apparent distress
General age: appears older than age
General Skin: warm and dry
General Habitus: elderly
General Mental: alert
General Hydration: appears well hydrated
ENT Exam
ENT Exam: TM's normal, pharynx normal and neck supple
Eye Exam
Eye Exam: EOMI
Cardiovascular Exam
Cardiovascular Exam: regular rate/rhythm and normal peripheral pulses
Pulmonary Exam
Pulmonary Exam: lungs clear, no respiratory distress, no rales, chest non tender, no crackles, no rhonchi, no wheezing and no cough
Gastrointestinal Exam
Gastrointestinal Exam: normal bowel sounds, soft, no organomegaly, no pulsatile mass, non distended and tender (Left sided abd tenderness with palpation and epigastric tenderness)
Musculoskeletal Exam
Musculoskeletal Exam: full ROM and edema (Feet and lower legs +2 pitting edema. )
Skin Exam
Skin Exam: normal color, warm/dry, no rash and no petechia
Psychiatric Exam
Psychiatric Exam: normal mood/affect
Course
Orders/Labs/Results
Orders:
Orders
08/28/23 20:52
Complete Blood Count/With Diff Urgent
Comprehensive Metabolic Panel Urgent
Lipase Urgent
Protime/PTT Urgent
08/28/23 21:43
CT Abd/pelvis W Iv Cont Urgent
Comment:
Reason For Exam: Left sided and epigastric pain
0.9% Sodium Chloride 500 ml [Nss] 500 ml IV BOLUS
Acetaminophen 1000MG/100Ml [Ofirmev] 1,000 mg in 100 ml IV ONCE
Acetaminophen IV Indication:: ED Narcotic Naive Pt-ONCE
Pantoprazole [Protonix IV] 40 mg IV NOW STA
08/28/23 21:44
Ondansetron Injectable [Zofran] 4 mg IV NOW STA
Abnormal Lab Results
08/28/23
20:52
RBC 4.13 L 10^6/uL
(4.20-5.40)
Hgb 11.7 L g/dL
(12.0-16.0)
Hct 34.4 L %
(37.0-47.0)
PT 14.8 H Sec
(11.4-14.6)
Creatinine 0.4 L mg/dL
(0.6-1.0)
Glucose 112 H mg/dl
(70-99)
Total Protein 5.7 L g/dl
(6.3-8.2)
Albumin 3.3 L g/dl
(3.5-5.0)
08/28/23 20:52
08/28/23 20:52
H/H slighlty low. PT 14.8 with INR 1.18, PTT 30.3, Lipase normal at 138, Glucose nonfasting. Total protein low. Albumin slightly low
Vital Signs
Initial and Last Documented VS:
Initial Vital Signs
Temp Pulse Resp BP Pulse Ox
99.8 F 76 18 170/75 100
08/28/23 17:32 08/28/23 17:32 08/28/23 17:32 08/28/23 17:32 08/28/23 17:32
Last Documented Vital Signs
Temp Pulse Resp BP Pulse Ox
99.8 F 76 18 150/60 98
08/28/23 17:32 08/28/23 17:32 08/28/23 17:32 08/28/23 21:00 08/28/23 22:05
MDM/Problems Addressed
Differential Diagnosis Includes:
Chronic colitis, Enteritis,
MDM/Problems Addressed:
This is a 57 year old female that comes in with c/o abd pain. Patient was in [facility] and signed out AMA today. Went with her abd pain.
Will check labs and get CT scan. Patient has a history of Chronic colitis and chronic narcotic dependency. States that she can't take NSAIDS. Will give IV Tylenol for pain. Will discharge home if labs and CT normal.
Back into see patient. Reviewed CT findings. Explained that her blood work was normal. Will have patient follow up with the family doctor and her GI specialist for further evaluation. Patient to return with any concerns
Chronic conditions affecting care:
Chronic colitis
Acute Exacerbation and/or Progression of Chronic Illness:
Chronic colitis
*Radiology
Radiology exam reviewed: radiology read reviewed (ct ABD/PELVIS- Bilateral renal calculi, including a large left sided calculus measuring 16mm. MIld bilateral hydronephrosis. No evidence of obstructing ureteral calculus. Status post gastric bypass.
No evidence of bowel obstruction. Cirrhosis. Trace bilateral pleural effusions. Anasrca. Additional ) and other (CT cont- Findings: post cholecystectomy. Dependent atelectasis. Vascular calcification. Post Hysterectomy. DJD)
*Pulse Oximetry
Patient hypoxic: no
*EKG
Interpreted by ED Provider?: NA
Rate: EKG- N/A
*Business Law Teacher Interpretation
Rate: Business Law Teacher- N/A
*Critical Care Note
Total Time (30-74mins, 75-104mins- exclusive of procedures): Not Applicable
ED Attending Note
-
Portions of this chart may have been created with voice recognition software.� Occasional wrong word or��sound alike� substitutions may have occurred due to the inherent limitations of voice recognition software.
Discharge Plan
Departure
Patient Disposition: Home (Routine Discharge)
Date of Disposition: 08/29/23
Time of Disposition: 00:24
Patient with high blood pressure during this ER visit?: Yes
Condition: Good
Covid-19: Not Applicable
Discharge Problem:
Left sided abdominal pain
Instructions: Abdominal Pain, BLOOD PRESSURE
Prescriptions:
No Action
pantoprazole 40 MG tablet,delayed release (DR/EC)
40 mg PO BID
furosemide 20 MG tablet
20 mg PO DAILY
budesonide 3 MG capsule,delayed,extend.release
6 mg PO DAILY
Humira 40 MG/0.8 ML syringe kit
40 mg SC TH
famotidine 20 MG tablet
20 mg PO BID
mesalamine [Delzicol] 400 MG capsule (with del rel tablets)
800 mg PO BID
tramadol 50 MG tablet
50 mg PO DAILY
Patient Comments:
07/08/2023: las filled 06/18/23, 30 tabs for 30 days from [facility]
High Potency Probiotic 1 CAP capsule
1 cap PO TID
multivitamin with folic acid [Tab-A-Madiha] 1 TABLET tablet
1 tab PO TID
cetirizine [Zyrtec] 10 mg Tablet
10 mg PO HS
hydroxychloroquine 200 mg tablet
200 mg PO DAILY
tetracycline 500 mg capsule
500 mg PO DAILY
amoxicillin-pot clavulanate 875-125 mg tablet
1 tab PO Q12H Qty: 10 0RF
Triple Antibiotic 3.5mg-400 unit- 5,000 unit/gram ointment
1 applic topical BID Qty: 14 0RF
oxycodone 5 mg tablet
5 mg PO Q8H PRN (Reason: Mod sev pain) Qty: 10 0RF
Referrals:
Kathy Doherty MD [Family Provider] - Follow up in 5-7 days
Activity Restrictions/Additional Instructions:
As discussed, your blood work is normal along the CT scan. You do have stones in the kidney but there are no obstructing stones. Please increase your water intake to 8-8oz glasses daily. Follow up with the family doctor and your GI specialist for
further evaluation. IF YOU HAVE INCREASED OR CHANGING PAIN, OR YOU HAVE ANY OTHER CONCERNS PLEASE RETURN TO THE EMERGENCY ROOM.
Interventions
Interventions:
*Risk Screen - Suicide Last Done: 08/28/23 17:32
*General Assessment Last Done: 08/28/23 17:32
*Neglect/Abuse Screening Last Done: 08/28/23 17:32
ED- Fall Risk Assessment Last Done: 08/28/23 21:14
*ED COVID-19 Vaccine History Last Done: 08/28/23 17:32
AH-Gnescr-Frjusmywuh Assessment Last Done: 08/28/23 21:14
Discharge Date and Time
Print Language: MONEGASQUE
[2023-08-28] MEDS: OFIRMEV 100 IV (21:58)
[2023-08-28] MEDS: NSS 500 IV (21:58)
[2023-08-28] MEDS: ZOFRAN 4 MG IV (21:58)
[2023-08-28 22:04] LABS: ALT (SGPT) 20 U/L (0-35); AST (SGOT) 30 U/L (14-36); Albumin 3.3 g/dl (3.5-5.0); Alkaline Phosphatase 60 U/L (38-126); Blood Urea Nitrogen 14 mg/dl (7-17); Calcium 8.9 mg/dl (8.4-10.2); Carbon Dioxide 24 mmol/L (22-30); Chloride 106 mmol/L (98-107); Estimated Creatinine Clearance 108 ml/min; Glucose 112 mg/dl (70-99); Potassium 4.3 mmol/L (3.5-5.1); Sodium 135 mmol/L (135-145); Total Bilirubin 0.4 mg/dl (0.2-1.3); Total Protein 5.7 g/dl (6.3-8.2); eGFR > 60.00
[2023-08-28 22:12] LABS: Lipase 138 U/L (23-300)
== END 2023-08-29 01:12 | disposition home or self-care (01) ==
LOC: EMR 17:26
PROVIDERS: EMERGENCY PHYSICIAN Emergency Medicine; FAMILY PHYSICIAN Family Medicine
DX: R10.9 Unspecified abdominal pain (principal); R50.9 Fever, unspecified; R11.2 Nausea with vomiting, unspecified; I10 Essential (primary) hypertension; K52.9 Noninfective gastroenteritis and colitis, unspecified; F11.20 Opioid dependence, uncomplicated; Z87.891 Personal history of nicotine dependence
CPT/HCPCS: 99285; 96374; 96375 ×2; 96361; 74177; 80053; 83690; 85025; 85610; 85730; Q9967

== ENCOUNTER 2023-12-15 04:30 | Emergency (ER) | payer OTHER, MEDICAID, SELFPAY ==
[2023-12-15 04:33] VITALS: BP 162/74
[2023-12-15 04:50] VITALS: BMI 26.1
[2023-12-15 05:04] VITALS: BP 160/67
[2023-12-15 05:36] LABS: % Basophils 0.5 % (0-2); % Eosinophils 1.4 % (0-6); % Immature Granulocytes 0.3 % (0-0.5); % Lymphocytes 29.3 % (20.5-51.1); % Monocytes 7.3 % (1.7-9.3); % Neutrophils 61.2 % (42.2-75.2); Absolute Basophils 0.1 10^3/uL (0-0.2); Absolute Eosinophils 0.2 10^3/uL (0-0.7); Absolute Lymphocytes 3.4 10^3/uL (1.2-3.4); Absolute Monocytes 0.8 10^3/uL (0.1-0.6); Hematocrit 36.4 % (37.0-47.0); Hemoglobin 12.1 g/dL (12.0-16.0); Mean Corp Hgb Conc. 33.2 g/dL (33.0-37.0); Mean Corpuscular Hgb 28.6 pg (27.0-31.0); Mean Corpuscular Volume 86.1 fL (81.0-99.0); Mean Platelet Volume 8.8 fL (7.4-10.4); Nucleated Red Blood Cells % 0 %; Platelet Count 228 10^3/uL (130-400); Red Blood Cell Count 4.23 10^6/uL (4.20-5.40); Red Cell Dist. Width 15.4 % (11.5-14.5); White Blood Cell Count 11.5 10^3/uL (4.8-10.8)
[2023-12-15 05:56] LABS: Urine Albumin Trace (Neg - Trace); Urine Bilirubin 1+ (Negative); Urine Character Clear (Clear); Urine Color Yellow; Urine Glucose Negative (Negative); Urine Ketone Negative (Negative); Urine Leukocyte Trace (Negative); Urine Nitrite Negative (Negative); Urine Occult Blood 1+ (Negative); Urine Urobilinogen Negative (Neg - 1+)
[2023-12-15 05:59] LABS: ALT (SGPT) 18 U/L (0-35); AST (SGOT) 26 U/L (14-36); Alkaline Phosphatase 64 U/L (38-126); Blood Urea Nitrogen 13 mg/dl (7-17); Carbon Dioxide 28 mmol/L (22-30); Chloride 102 mmol/L (98-107); Estimated Creatinine Clearance 93 ml/min; Glucose 103 mg/dl (70-99); Lipase 114 U/L (23-300); Potassium 2.9 mmol/L (3.5-5.1); Sodium 142 mmol/L (135-145); Total Bilirubin 0.3 mg/dl (0.2-1.3); Total Protein 6.1 g/dl (6.3-8.2); eGFR > 60.00
[2023-12-15 06:00] VITALS: BP 167/60
[2023-12-15] MEDS: ZOFRAN 4 MG IV (06:19)
[2023-12-15] MEDS: DILAUDID 0.5 MG IV ×2 (06:19→08:02)
[2023-12-15 06:20] LABS: Urine White Cell None Seen /HPF (0-5)
[2023-12-15] MEDS: NSS 500 IV (06:20)
[2023-12-15 06:36] VITALS: BP 167/60
--- NOTE | 2023-12-15 06:44 | ED.GENMED ---
History of Present Illness
General
Chief Complaint: Flank Pain
Source: patient
Exam Limitations: none
Time Seen by Provider: 12/15/23 06:03
Nursing documentation reviewed up to this point in time: agreed with
History of Present Illness
History of Present Illness:
Patient with history of kidney stones, presents to ED secondary to recurrent right flank pain associated with nausea and vomiting since yesterday afternoon. Patient states that she constantly passes small kidney stones spontaneously, including 1
over the past 3 days. Patient is followed by Dr. Bey, urology. Denies fever or chills. Denies diarrhea. Denies trauma. Denies difficulty urination. Patient states that her symptoms are same as what she has experienced in the past. She
has been told by Dr. Addison to not receive any more CT scan, as she has received multiple CTs in the past. Patient requesting pain management only at this time.
Past History
Past History
ED Past Medical History: Asthma, Fibromyalgia, GERD, HTN, NIDDM (Diet controlled byfore gastric bypass), Psychiatric (Depression), Other (Recurrent C. difficile enterocolitis. , Chronic abdominal pain with narcotic dependence, Chronic colitis,
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
Ovarian cyst, Cellulitis, anemia, )
ED Past Surgical History: Appendectomy, Bowel resection (Gastric bypass), Cholecystectomy, Gynecological (Hysterectomy with bladder lift), Orthopedic (Right ankle sugery), Urological (Lithotripsy with bilateral ureteral stents November 2016) and Other
(Gastric bypass , ureteroscopy with bilateral ureteral stents placed September 2009. Left renal pelvis lithotripsy October 10, 2009. Abd mesh placed after hernia repair,)
Social History
Tobacco: Former smoker
Alcohol: Occasional
Drug: None
Personal:
Living: with family
Employment: Public assistance
Family History
Family History: Other (One rectal cancer, COPD )
Review of Systems
Review of Systems
Allergies reviewed?: Yes
All Other Systems: ROS reviewed and negative except as documented in HPI and ROS
Constitutional: Reports no symptoms; Denies fever or chills
ABD/GI: Reports nausea and vomiting; Denies abdominal pain or diarrhea
: Reports flank pain; Denies dysuria or difficulty voiding
Musculoskeletal: Reports no symptoms
Skin: Reports no symptoms
Neurological: Reports no symptoms
Phy Exam
Physical Exam
Physical Exam:
Physical Exam
General: mild painful distress, not acutely ill. afebrile
Head: nc/at. eomi
Neck: supple. normal range of motion
Abdomen: normal bowel sounds. not tender.
Neuro: alert and oriented. no focal neurological deficits
Skin: no rash
Psychiatric: well kept. interactive and cooperative
Extremities: no edema. no calf tenderness.
Course
Orders/Labs/Results
Orders:
Orders
12/15/23 04:44
IV Insert/Care/Rem.- Treatment PRN
12/15/23 05:28
Complete Blood Count/With Diff Urgent
Comprehensive Metabolic Panel Urgent
Lipase Urgent
Urinalysis Reflex To Culture Urgent
Date Specimen was Collected: 12/15/23
Time Specimen was Collected: 04:45
Urine Microscopic Reflex Cult Urgent
12/15/23 06:13
0.9% Sodium Chloride 500 ml [Nss] 500 ml IV BOLUS
HYDROmorphone [Dilaudid] 0.5 mg IV NOW STA
Ondansetron Injectable [Zofran] 4 mg IV NOW STA
12/15/23 06:14
CR Abdomen - 1 View Urgent
Comment:
Reason For Exam: right flank pain w hematuria
12/15/23 07:46
HYDROmorphone [Dilaudid] 0.5 mg IV NOW STA
12/15/23 07:48
Potassium Chloride [KCl] 40 meq PO NOW STA
12/15/23 09:36
HYDROmorphone [Dilaudid] 2 mg PO NOW STA
Abnormal Lab Results
12/15/23
05:28
WBC 11.5 H 10^3/uL
(4.8-10.8)
Hct 36.4 L %
(37.0-47.0)
RDW 15.4 H %
(11.5-14.5)
Absolute Neuts (auto) 7.0 H 10^3/uL
(1.4-6.5)
Absolute Monos (auto) 0.8 H 10^3/uL
(0.1-0.6)
Potassium 2.9 L mmol/L
(3.5-5.1)
Glucose 103 H mg/dl
(70-99)
Total Protein 6.1 L g/dl
(6.3-8.2)
Ur Occult Blood Reflex 1+ A
(Negative)
Urine Bilirubin 1+ A
(Negative)
Leukocyte Esterase Rfl Trace A
(Negative)
Urine RBC 7-10 A /HPF
(0-2)
12/15/23 05:28
12/15/23 05:28
Vital Signs
Initial and Last Documented VS:
Initial Vital Signs
Temp Pulse Resp BP Pulse Ox
98 F 70 22 162/74 100
12/15/23 04:33 12/15/23 04:33 12/15/23 04:33 12/15/23 04:33 12/15/23 04:33
Last Documented Vital Signs
Temp Pulse Resp BP Pulse Ox
98 F 70 22 143/77 96
12/15/23 04:33 12/15/23 04:33 12/15/23 04:33 12/15/23 10:07 12/15/23 10:07
MDM/Problems Addressed
MDM/Problems Addressed:
Patient reports improvement symptoms after treatment. Patient otherwise remains afebrile, hemodynamically stable and nontoxic-appearing. CT report from August 2023 as well as x-ray today reviewed with on-call urologist, Dr. Holley, who discussed
findings with patient's primary urologist Dr. Bey. Recommend the patient to be discharged home now from the ED and Dr. Bey will see the patient tomorrow in the office.
Patient will be discharged home in stable condition, to the care of her family. Short course of Dilaudid tablets will be ordered to control her pain.
*Critical Care Note
Total Time (30-74mins, 75-104mins- exclusive of procedures): Not Applicable
ED Attending Note
-
Portions of this chart may have been created with voice recognition software.� Occasional wrong word or��sound alike� substitutions may have occurred due to the inherent limitations of voice recognition software.
Discharge Plan
Departure
Patient Disposition: Home (Routine Discharge)
Date of Disposition: 12/15/23
Time of Disposition: 09:39
Patient with high blood pressure during this ER visit?: Yes
Discharge Problem:
Renal colic
Instructions: Renal Colic (DC)
Prescriptions:
No Action
pantoprazole 40 MG tablet,delayed release (DR/EC)
40 mg PO BID
furosemide 20 MG tablet
20 mg PO DAILY
budesonide 3 MG capsule,delayed,extend.release
6 mg PO DAILY
Humira 40 MG/0.8 ML syringe kit
40 mg SC TH
famotidine 20 MG tablet
20 mg PO BID
tramadol 50 MG tablet
50 mg PO DAILY
Patient Comments:
07/08/2023: las filled 06/18/23, 30 tabs for 30 days from [facility]
High Potency Probiotic 1 CAP capsule
1 cap PO TID
multivitamin with folic acid [Tab-A-Madiha] 1 TABLET tablet
1 tab PO TID
mesalamine 800 mg Tablet,Delayed Release (Dr/Ec)
1,600 mg PO BID
Referrals:
Tomas Bey MD [Active] -
Kathy Doherty MD [Family Provider] -
Activity Restrictions/Additional Instructions:
As discussed, please follow-up with your urologist for reevaluation tomorrow. Your prescriptions have been sent electronically to [facility] in [place].
Interventions
Interventions:
*Risk Screen - Suicide Last Done: 12/15/23 04:33
*General Assessment Last Done: 12/15/23 04:50
*Neglect/Abuse Screening Last Done: 12/15/23 04:33
*ED COVID-19 Vaccine History Last Done: 12/15/23 04:50
*Nursing Disposition Last Done: 12/15/23 10:07
HT-Fxuwck-Gvjciijdms Assessment Last Done: 12/15/23 04:50
ED-Female Genitourinary Assessment Last Done: 12/15/23 05:01
Discharge Date and Time
Discharge Date/Time: 12/15/23 10:11
Print Language: WALLISIAN
[2023-12-15] MEDS: DILAUDID 2 MG PO (09:47)
[2023-12-15 10:07] VITALS: BP 143/77
== END 2023-12-15 10:11 | disposition home or self-care (01) ==
LOC: EMR 04:30
PROVIDERS: Emergency Medicine; EMERGENCY PHYSICIAN Emergency Medicine; FAMILY PHYSICIAN Family Medicine
DX: N23 Unspecified renal colic (principal); R10.9 Unspecified abdominal pain; R11.2 Nausea with vomiting, unspecified; I10 Essential (primary) hypertension; G47.30 Sleep apnea, unspecified; J45.909 Unspecified asthma, uncomplicated; K21.9 Gastro-esophageal reflux disease without esophagitis; M19.90 Unspecified osteoarthritis, unspecified site; M79.7 Fibromyalgia; F32.A Depression, unspecified; F11.20 Opioid dependence, uncomplicated; K52.9 Noninfective gastroenteritis and colitis, unspecified; G43.909 Migraine, unspecified, not intractable, without status migrainosus; K57.92 Diverticulitis of intestine, part unspecified, without perforation or abscess without bleeding; F19.11 Other psychoactive substance abuse, in remission; Z87.442 Personal history of urinary calculi; Z87.440 Personal history of urinary (tract) infections; Z98.84 Bariatric surgery status; Z87.891 Personal history of nicotine dependence; Z86.718 Personal history of other venous thrombosis and embolism; Z90.49 Acquired absence of other specified parts of digestive tract; Z88.1 Allergy status to other antibiotic agents; Z88.3 Allergy status to other anti-infective agents; Z88.5 Allergy status to narcotic agent; Z88.0 Allergy status to penicillin; Z88.8 Allergy status to other drugs, medicaments and biological substances; Z91.048 Other nonmedicinal substance allergy status
CPT/HCPCS: 99284; 96374; 96375; 96376; 74018; 80053; 81003; 81015; 83690; 85025

== ENCOUNTER 2023-12-16 04:50 | Inpatient (IN) | payer OTHER, MEDICAID, SELFPAY ==
[2023-12-15 21:22] VITALS: BP 158/66
[2023-12-15 22:40] VITALS: BP 155/60
[2023-12-16] VITALS (19 sets, daily range): BP systolic 106–154; BP diastolic 46–73; BMI 25.7
--- NOTE | 2023-12-16 00:43 | ED.GENMED ---
History of Present Illness
General
Chief Complaint: Abdominal Symptoms
Source: patient
Exam Limitations: none
Time Seen by Provider: 12/15/23 23:52
History of Present Illness
History of Present Illness:
This is a 58 year old female that comes in with c/o 'Excruciating' right flank pain. Patient was seen here last night for pain. States that she was told that she has right sided kidney stone that is obstructing. States that she has not been able to
keep anything down today and that she keeps vomiting. States that the edema in her legs tells her that there is an obstructing stone as this is what has happened in the past. States that she has fever of 101 at home with chills. States that she has
a headache and that she always has abd pain with diarrhea. Denies any chest pain, SOB, dizziness, urinary burning.
Past History
Past History
ED Past Medical History: Asthma, Fibromyalgia, GERD, HTN, NIDDM (Diet controlled byfore gastric bypass), Psychiatric (Depression), Other (Recurrent C. difficile enterocolitis. Chronic abdominal pain with narcotic dependence, Chronic colitis,
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
transplant, Ovarian cyst, Cellulitis, anemia, )
ED Past Surgical History: Appendectomy, Bowel resection (Gastric bypass), Cholecystectomy, Gynecological (Hysterectomy with bladder lift, tubal), Orthopedic (Right ankle surgery), Urological (Lithotripsy with bilateral ureteral stents November 2016)
and Other (Gastric bypass , ureteroscopy with bilateral ureteral stents placed September 2009. Left renal pelvis lithotripsy October 10, 2009. Abd mesh placed after hernia repair,)
Social History
Tobacco: Former smoker
Alcohol: Occasional
Drug: None
Personal:
Living: with family
Employment: Public assistance
Family History
Family History: Other (One rectal cancer, COPD )
Review of Systems
Review of Systems
All Other Systems: ROS reviewed and negative except as documented in HPI and ROS
Constitutional: Reports fever and chills
EENT: Reports no symptoms
Respiratory: Reports no symptoms; Denies cough or trouble breathing
Cardiac: Reports no symptoms; Denies chest pain
ABD/GI: Reports abdominal pain, nausea, vomiting and diarrhea
: Reports flank pain (Right sided); Denies dysuria, frequency or urgency
Musculoskeletal: Reports no symptoms
Skin: Reports no symptoms
Neurological: Reports headache; Denies dizzy
Psychiatric: Reports no symptoms
Phy Exam
General Physical Exam
General Presentation: no apparent distress
General age: appears older than age
General Skin: warm and dry
General Habitus: normal
General Mental: alert
General Hydration: dry mucous membranes
ENT Exam
ENT Exam: TM's normal, pharynx normal and neck supple
Eye Exam
Eye Exam: EOMI
Cardiovascular Exam
Cardiovascular Exam: regular rate/rhythm and normal peripheral pulses
Pulmonary Exam
Pulmonary Exam: lungs clear, no respiratory distress, no rales, chest non tender, no crackles, no rhonchi, no wheezing and no cough
Gastrointestinal Exam
Gastrointestinal Exam: normal bowel sounds, soft, no organomegaly, no pulsatile mass, non distended and tender (Chronic tenderness according to patient)
Musculoskeletal Exam
Musculoskeletal Exam: full ROM and edema (+2 pitting edema of the lower legs)
Skin Exam
Skin Exam: normal color, warm/dry, no rash and no petechia
Psychiatric Exam
Psychiatric Exam: normal mood/affect
Course
Orders/Labs/Results
Orders:
Orders
12/16/23 00:42
0.9% Sodium Chloride 1000 ml [Nss] 1,000 ml IV BOLUS
Ondansetron Injectable [Zofran] 4 mg IV NOW STA
12/16/23 00:45
Ketorolac [Toradol] 30 mg IV NOW STA
12/16/23 00:56
Complete Blood Count/With Diff Urgent
Comprehensive Metabolic Panel Urgent
Lactic Acid Urgent
NT-proBNP Urgent
Troponin I Urgent
12/16/23 01:10
Acetaminophen 1000MG/100Ml [Ofirmev] 1,000 mg in 100 ml IV ONCE
Acetaminophen IV Indication:: ED Narcotic Naive Pt-ONCE
12/16/23 01:23
Urinalysis Reflex To Culture Urgent
Date Specimen was Collected: 12/16/23
Time Specimen was Collected: 01:08
Urine Microscopic Reflex Cult Urgent
12/16/23 02:05
Potassium Chloride [KCl] 40 meq 0.9% Sodium Chloride 250 ml [Nss] 250 ml IV NOW
12/16/23 02:08
US Renal Only W/O Bladder Urgent
Comment:
Reason For Exam: Right flank pain
12/16/23 02:16
Potassium Chloride [KCl] 40 meq 0.9% Sodium Chloride 250 ml [Nss] 250 ml IV NOW
12/16/23 02:49
HYDROmorphone [Dilaudid] 1 mg IV NOW STA
Abnormal Lab Results
12/16/23 12/16/23
00:56 01:23
WBC 15.1 H 10^3/uL
(4.8-10.8)
RBC 3.82 L 10^6/uL
(4.20-5.40)
Hgb 10.7 L g/dL
(12.0-16.0)
Hct 32.1 L %
(37.0-47.0)
RDW 15.3 H %
(11.5-14.5)
Absolute Neuts (auto) 11.5 H 10^3/uL
(1.4-6.5)
Absolute Monos (auto) 1.2 H 10^3/uL
(0.1-0.6)
Neutrophils % 75.6 H %
(42.2-75.2)
Lymphocytes % 15.4 L %
(20.5-51.1)
Potassium 2.7 L* mmol/L
(3.5-5.1)
Glucose 116 H mg/dl
(70-99)
Total Protein 5.8 L g/dl
(6.3-8.2)
Urine Bilirubin 1+ A
(Negative)
Leukocyte Esterase Rfl Trace A
(Negative)
Urine RBC 7-10 A /HPF
(0-2)
Urine Bacteria (Reflex) Few A
(Negative)
12/16/23 00:56
12/16/23 00:56
Leukocytosis. H/H low. Hypokalemia, Glucose nonfasting. Lactic acid normal, Troponin 0.012, Pro-BNP 504. Urine negative for infection or blood.
Vital Signs
Initial and Last Documented VS:
Initial Vital Signs
Temp Pulse Resp BP Pulse Ox
99.4 F 70 24 158/66 100
12/15/23 21:22 12/15/23 21:22 12/15/23 21:22 12/15/23 21:22 12/15/23 21:22
Last Documented Vital Signs
Temp Pulse Resp BP Pulse Ox
98.5 F 65 18 142/60 96
12/16/23 00:39 12/15/23 22:40 12/15/23 22:40 12/16/23 02:15 12/16/23 02:15
MDM/Problems Addressed
Differential Diagnosis Includes:
Renal calculus,
MDM/Problems Addressed:
This is a 58 year old female that comes in with c/o right flank pain. Patient was seen here last night. States that today she has not been able to keep anything down and that she has excrutiating pain. States that she was told that she has s tone
that is blocking in the right side.
will check labs, CT scan, give IV fluids, Zofran and Toradol
Told by Nursing staff that patient refused the CT. Had mentioned to patient that there was no mention of obstruction on the X-ray or the Prior CT on 08/28/23. Patient blood work shows that she has Hypokalemia. will admit patient for further
evaluation.
Back into see patient. Explained that she will be admitted. Explained that her Potassium is very low and she will be given IV potassium. US also shows that she has a very large obstructing stone and that is hydronephrosis with perinephric stranding.
Patient also states that she is not allergic to Dilaudid that she had a dependence years go on the Oral Dilaudid.
Chronic conditions affecting care:
renal calculus
Acute Exacerbation and/or Progression of Chronic Illness:
Renal calculus
*Radiology
Radiology exam reviewed: radiology read reviewed (CT- night hawk- 8mm obstructing right UPJ calculus. Mild to moderate hydronephrosis with small amount of perinephric fluid. Additional nonobstructing bilateral renal calculi. )
*Pulse Oximetry
Patient hypoxic: no
*EKG
Interpreted by ED Provider?: NA
*Critical Care Note
Total Time (30-74mins, 75-104mins- exclusive of procedures): Not Applicable
ED Attending Note
-
Portions of this chart may have been created with voice recognition software.� Occasional wrong word or��sound alike� substitutions may have occurred due to the inherent limitations of voice recognition software.
Discharge Plan
Departure
Patient Disposition: Admit
Date of Disposition: 12/16/23
Time of Disposition: 03:08
Admit to: Med/Surg
Presentation/result/management discussed w/ accepting MD/DO: Hospitalist
Condition: Good
Covid-19: Not Applicable
Discharge Problem:
Hypokalemia, Renal calculus, right
Prescriptions:
No Action
pantoprazole 40 MG tablet,delayed release (DR/EC)
40 mg PO BID
furosemide 20 MG tablet
20 mg PO DAILY
budesonide 3 MG capsule,delayed,extend.release
6 mg PO DAILY
Humira 40 MG/0.8 ML syringe kit
40 mg SC TH
famotidine 20 MG tablet
20 mg PO BID
mesalamine [Delzicol] 400 MG capsule (with del rel tablets)
800 mg PO BID
tramadol 50 MG tablet
50 mg PO DAILY
Patient Comments:
07/08/2023: las filled 06/18/23, 30 tabs for 30 days from [facility]
High Potency Probiotic 1 CAP capsule
1 cap PO TID
multivitamin with folic acid [Tab-A-Mdaiha] 1 TABLET tablet
1 tab PO TID
cetirizine [Zyrtec] 10 mg Tablet
10 mg PO HS
hydroxychloroquine 200 mg tablet
200 mg PO DAILY
tetracycline 500 mg capsule
500 mg PO DAILY
amoxicillin-pot clavulanate 875-125 mg tablet
1 tab PO Q12H Qty: 10 0RF
Triple Antibiotic 3.5mg-400 unit- 5,000 unit/gram ointment
1 applic topical BID Qty: 14 0RF
oxycodone 5 mg tablet
5 mg PO Q8H PRN (Reason: Mod sev pain) Qty: 10 0RF
ondansetron 4 mg Tablet,Disintegrating
4 mg PO TIDPRN PRN (Reason: nausea/vomiting) Qty: 12 0RF
hydromorphone [Dilaudid] 2 mg tablet
2 mg PO Q6H PRN (Reason: Pain) Qty: 10 0RF
Referrals:
Kathy Doherty MD [Family Provider] -
Interventions
Interventions:
*Risk Screen - Suicide Last Done: 12/15/23 21:22
*General Assessment Last Done: 12/16/23 00:42
*Neglect/Abuse Screening Last Done: 12/15/23 21:22
*ED COVID-19 Vaccine History Last Done: 12/16/23 00:42
TM-Alenwo-Vmpkuboyqw Assessment Last Done: 12/16/23 00:41
ED-Female Genitourinary Assessment Last Done: 12/16/23 00:41
Discharge Date and Time
Print Language: JAMAICAN
[2023-12-16] MEDS: ZOFRAN 4 MG IV ×2 (01:08→09:44)
[2023-12-16] MEDS: NSS 1000 IV (01:09)
[2023-12-16 01:10] LABS: % Basophils 0.5 % (0-2); % Eosinophils 0.5 % (0-6); % Immature Granulocytes 0.3 % (0-0.5); % Lymphocytes 15.4 % (20.5-51.1); % Monocytes 7.7 % (1.7-9.3); % Neutrophils 75.6 % (42.2-75.2); Absolute Basophils 0.1 10^3/uL (0-0.2); Absolute Eosinophils 0.1 10^3/uL (0-0.7); Absolute Lymphocytes 2.3 10^3/uL (1.2-3.4); Absolute Monocytes 1.2 10^3/uL (0.1-0.6); Absolute Neutrophils 11.5 10^3/uL (1.4-6.5); Hematocrit 32.1 % (37.0-47.0); Hemoglobin 10.7 g/dL (12.0-16.0); Mean Corp Hgb Conc. 33.3 g/dL (33.0-37.0); Mean Platelet Volume 8.9 fL (7.4-10.4); Nucleated Red Blood Cells % 0 %; Platelet Count 218 10^3/uL (130-400); Red Blood Cell Count 3.82 10^6/uL (4.20-5.40); Red Cell Dist. Width 15.3 % (11.5-14.5); White Blood Cell Count 15.1 10^3/uL (4.8-10.8)
[2023-12-16] MEDS: OFIRMEV 100 IV (01:25)
[2023-12-16 01:26] LABS: ALT (SGPT) 16 U/L (0-35); AST (SGOT) 30 U/L (14-36); Albumin 3.7 g/dl (3.5-5.0); Alkaline Phosphatase 72 U/L (38-126); Blood Urea Nitrogen 15 mg/dl (7-17); Calcium 8.9 mg/dl (8.4-10.2); Carbon Dioxide 28 mmol/L (22-30); Chloride 101 mmol/L (98-107); Estimated Creatinine Clearance 67 ml/min; Glucose 116 mg/dl (70-99); Potassium 2.7 mmol/L (3.5-5.1); Sodium 139 mmol/L (135-145); Total Bilirubin 0.5 mg/dl (0.2-1.3); Total Protein 5.8 g/dl (6.3-8.2); eGFR > 60.00
[2023-12-16 01:34] LABS: NT-proBNP 504 pg/ml; Troponin I < 0.012 ng/ml
[2023-12-16 02:08] LABS: Urine Albumin Negative (Neg - Trace); Urine Bilirubin 1+ (Negative); Urine Character Clear (Clear); Urine Color Yellow; Urine Glucose Negative (Negative); Urine Ketone Negative (Negative); Urine Leukocyte Trace (Negative); Urine Nitrite Negative (Negative); Urine Occult Blood Negative (Negative); Urine Urobilinogen Negative (Neg - 1+)
[2023-12-16 02:35] LABS: Urine Mucus Few; Urine Squamous Cell 16-20 /LPF (Few)
[2023-12-16 02:36] LABS: Urine Bacteria Few (Negative)
[2023-12-16 02:38] LABS: Urine Uric Acid Crystals Seen
[2023-12-16] MEDS: KCL 270 MEQ IV (03:02)
[2023-12-16] MEDS: DILAUDID 1 MG IV (03:02)
--- NOTE | 2023-12-16 04:38 | HPS.HSE ---
Family Physician
-
Family Physician: Kathy Doherty
Chief Complaint
-
R Flank pain / Fever
History of Present Illness
Patient is a 58y F with PMH significant for recurrent nephrolithiasis, chronic colitis and GERD who presents to ED complaining of R flank pain and fever. Patient states that she developed R flank pain about 2 days ago. She presented to the ED
here on Friday evening / Friday early AM and was found to have R kidney stone by KUB. She was discharged home for trial of pain control, but returned to the ED this evening with persistent R flank pain and new fever at home to 101.
Patient has had many episodes of kidney stones in the past.
No other current complaints or concerns.
Medical History
Past Medical History
Past Medical History: Reports Other
Additional Past Medical History:
Morbid Obesity, Recurrent Calcium Oxalate Nephrolithiasis, Colitis, History of Narcotic Dependence
Past Surgical History: Reports Other
Additional Past Surgical History:
Left Ankle ORIF, Appendectomy, Cholecystectomy, BPDS Bypass, Bilateral Salpingo-oophorectomy, MARY KATE, Bladder Sling, Multiple Prior Lithotripsy / Ureteral Stent Procedures
Social History
Tobacco: Non-smoker
Alcohol: Occasional
Drug: None
Family History
Family History: Not pertinent
Allergies / Home Medications
Allergies reflects when Allergies were last updated in [employer].
Home Medications with original date entered in [employer]
Allergy/Medication List:
Allergies
Allergy/AdvReac Type Severity Reaction Status Date / Time
adhesive Allergy BANDAIDS-WE Verified 12/15/23 21:26
LTS
Cephalosporins Allergy yeast Verified 12/15/23 21:26
infection
with oral
cephalosporin;
has
tolerated
many
ciprofloxacin [From Cipro] Allergy intravenous Verified 12/15/23 21:26
redness,
burn, and
itch
eluxadoline [From Viberzi] Allergy 'AFFECTED Verified 12/15/23 21:26
LIVER',ABD.
PAIN,CHEST
PAIN,SOB
halothane [From Fluothane] Allergy PROBLEMS Verified 12/15/23 21:26
WITH
ANESTHESIA
house dust Allergy sneezing, Verified 12/15/23 21:26
itchy nose
and eyes
watering
hydromorphone [Hydromorphone] Allergy Pt has Verified 12/15/23 21:
addiction
issues
w/hydromorphone
mold Allergy sneezing, Verified 12/15/23:
itchy nose
and eyes
watering
morphine Allergy Hives Verified 12/15/23 21:
Penicillins Allergy Itching/yeast Verified 12/15/23 21:
infection;
recent
outpatient
rx for
amox, pcn
pollen extracts Allergy sneezing, Verified 12/15/23 21:26
itchy nose
and eyes
watering
succinylcholine Allergy paralyzed Verified 12/15/23 21:26
[Succinylcholine] diaphragm,unable
to
breathe/talk
sumatriptan [From Imitrex] Allergy lost Verified 12/15/23 21:26
vision in
both eyes
pseudocholinesterase def Allergy anesthesia Uncoded 12/15/23 21:26
problems
Home Medications
furosemide 20 mg tablet 20 mg PO DAILY Fluid retention/Swelling 11/24/16
pantoprazole 40 mg tablet,delayed release 40 mg PO BID Gastrointestinal issue 11/24/16
budesonide 3 mg capsule,delayed,extended release 6 mg PO DAILY Gastrointestinal issue 04/28/17
adalimumab 40 mg/0.8 mL subcutaneous syringe kit (Humira) 40 mg SC TH Autoimmune disorder 09/13/17
famotidine 20 mg tablet 20 mg PO BID Gastrointestinal issue 09/30/20
Lactobac no.2-Bifidobac no.1-S. thermo 112.5 billion cell capsule (High Potency Probiotic) 1 cap PO TID Supplement 10/03/20
multivitamin with folic acid 400 mcg tablet (Tab-A-Madiha) 1 tab PO TID Supplement 10/03/20
tramadol 50 mg tablet 50 mg PO DAILY Pain 10/03/20
mesalamine 800 mg tablet,delayed release 1,600 mg PO BID 12/16/23
Review of Systems
-
History Source: Patient
A 12 point ROS was completed and negative except as noted: Yes
Constitutional: Reports Fever; Denies Fatigue or Chills
Respiratory: Denies Cough or Trouble Breathing
Cardiac: Denies Chest Pain or Palpitations
Abdomen/GI: Denies Abdominal Pain, Nausea, Vomiting or Diarrhea
: Reports Flank Pain and Bleeding; Denies Dysuria
Musculoskeletal: Reports Edema; Denies Joint Pain
Neurological: Denies Dizzy or Headache
Psych: Denies Depression or Anxiety
Physical Exam
Vital Signs
Vital Signs
Temp Pulse Resp BP Pulse Ox
98.5 F 65 18 122/53 95
12/16/23 00:39 12/15/23 22:40 12/15/23 22:40 12/16/23 04:18 12/16/23 04:00
Physical Exam
General: Other (58y F in mild distress due to pain.)
HEENT: Moist mucous membranes and PERRLA
Respiratory: Clear; No Wheezes, Rales or Rhonchi
Cardiac: S1/S2 and Regular Rhythm; No Murmur
GI: Soft, Non Tender, Non Distended and Normal Bowel Sounds
Genito-urinary: Other (Pos R CVAT.)
Musculoskeletal: No Clubbing, No Cyanosis and Other (2+ pitting edema b/l LEs.)
Neuro: AO x 3
Laboratory Results
-
12/16/23 00:56
12/16/23 00:56
Laboratory Results
Lactic Acid 1.0 mmol/L (0.7-2.0) 12/16/23 00:56
Total Bilirubin 0.5 mg/dl (0.2-1.3) 12/16/23 00:56
AST 30 U/L (14-36) 12/16/23 00:56
ALT 16 U/L (0-35) 12/16/23 00:56
Alkaline Phosphatase 72 U/L (38-126) 12/16/23 00:56
Troponin I < 0.012 ng/ml 12/16/23 00:56
Impression/Plan
-
A/P: Patient is a 58y F with PMH significant for recurrent kidney stones, chronic colitis and history of obesity s/p bariatric surgery who presents to ED complaining of R flank pain and fever.
Right UJ Stone with Obstruction
Fever
- Admit for further evaluation and treatment.
- NPO, IVF, pain control, etc.
- IV abx with ceftriaxone pending culture data.
- Urology evaluation for possible cysto / stent.
- Follow for clinical improvement.
Hypokalemia
- Significant hypokalemia with K = 2.7.
- Receiving IV rider in the ED. Continue IVFs with supplemental potassium.
- Suspicious of low Mg as well given acid suppression regimen, bariatric surgery, etc.
- Check Mg and replace if needed.
- Follow lytes and adjust K replacement as needed.
- Hold / discontinue Lasix for now.
Colitis
- Stable at present. Continue PO medications (mesalamine, budesonide, etc).
- Monitor for any new / worsening symptoms.
History of DVT
DVT Prophylaxis
- SCDs for now given procedure likely.
History of Gastric Bypass
- Stable. Monitor for any further electrolyte abnormalities, etc and replace as needed.
Code Status: Full
[2023-12-16 05:23] LABS: Magnesium 1.7 mg/dl (1.6-2.3)
[2023-12-16] MEDS: ROCEPHIN 1000 MG IV (06:30)
[2023-12-16] MEDS: STERILE WATER FOR INJECTION 10 ML IV (06:30)
[2023-12-16] MEDS: DILAUDID 0.5 MG IV ×4 (06:31→22:13)
[2023-12-16 07:14] LABS: Hematocrit 29.8 % (37.0-47.0); Hemoglobin 10.1 g/dL (12.0-16.0); Mean Corp Hgb Conc. 33.9 g/dL (33.0-37.0); Mean Corpuscular Hgb 27.6 pg (27.0-31.0); Mean Corpuscular Volume 81.4 fL (81.0-99.0); Mean Platelet Volume 9.5 fL (7.4-10.4); Platelet Count 234 10^3/uL (130-400); Red Blood Cell Count 3.66 10^6/uL (4.20-5.40); Red Cell Dist. Width 15.3 % (11.5-14.5); White Blood Cell Count 14.5 10^3/uL (4.8-10.8)
[2023-12-16 07:35] LABS: Blood Urea Nitrogen 14 mg/dl (7-17); Calcium 8.5 mg/dl (8.4-10.2); Carbon Dioxide 27 mmol/L (22-30); Chloride 103 mmol/L (98-107); Estimated Creatinine Clearance 80 ml/min; Glucose 100 mg/dl (70-99); Potassium 3.4 mmol/L (3.5-5.1); Sodium 139 mmol/L (135-145); eGFR > 60.00
[2023-12-16] MEDS: NSS with KCL 40 MEQ 1000 IV ×3 (08:33→22:14)
[2023-12-16] MEDS: ASACOL, DELZICOL DR 1600 MG PO ×2 (08:35→19:29)
[2023-12-16] MEDS: PROTONIX 40 MG PO ×2 (08:36→19:30)
[2023-12-16] MEDS: PEPCID 20 MG PO ×2 (08:36→19:30)
[2023-12-16] MEDS: ENTOCORT EC 6 MG PO (08:36)
--- NOTE | 2023-12-16 08:46 | W.PN.UPDATE ---
Update Note
Progress Note Update
Patient seen and examined. Agree with hospitalist H&P.
58-year-old female admitted early this morning for infected right ureteral stone with obstruction.
Continue IV Rocephin, IV fluids, n.p.o., pain meds. Urology consulted.
--- NOTE | 2023-12-16 10:11 | W.PN.URO.CBU ---
Today's Communication / Plan
-
Discussed the role for endoscopic intervention given the size/position of the right ureteral stone and ongoing pain/nausea
Discussed the risks of surgical intervention and general anesthesia: verbal and written consent provided
Assessment / Plan
-
Partially obstructing right UPJ stone
Right renal colic
Nausea
Hypokalemia: being corrected
Bilateral nephrolithiasis
Diagnosis
-
Date of Service: December 16, 2023
-
Patient Diagnosis:
Partially obstructing 8-10 mm right UPJ stone
Right renal colic
Subjective fever
Modest leukocytosis
Hypokalemia
---
Longstanding history of bilateral renal calculi in the setting of prior bariatric surgery
Subjective
-
Ongoing right renal colic requiring narcotic
Nausea
Objective
-
Vital Signs
Temp Pulse Resp BP Pulse Ox
98.3 F 53 16 106/61 98
12/16/23 07:15 12/16/23 07:15 12/16/23 07:15 12/16/23 07:15 12/16/23 07:15
Intake and Output
12/15/23 12/16/23 12/17/23
06:59 06:59 06:59
Output Total 250 / 250
Balance -250 / -250
Output:
Urine, Voided 250 / 250
Laboratory Results
12/16/23 06:11
12/16/23 06:11
Renal US and KUB personally reviewed
Review of Systems
-
Constitutional: No Symptoms
Respiratory: No Symptoms
Cardiac: No Symptoms
Abdomen/GI: Abdominal Pain and Nausea
: No Symptoms
Neurological: No Symptoms
Physical Exam
-
General - no acute distress
Abdomen - soft, right CVAT
Counseling
-
OR for right ureteroscopic stone manipulation with placement of right JJ stent
Keep NPO
--- NOTE | 2023-12-16 10:41 | CM ---
CM following re: discharge planning.
Reviewed pt's chart, met with pt.
Pt is a 58 year old female, admitted with primary dx of Kidney stone. Pt is to OR for right ureteroscopic stone manipulation with placement of right JJ stent.
Pt reports she lives with , mother in law and 2 children in a 2SH, 2 steps to enter, has 3 supportive children. 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 No SNF history, no DME.
PCP: Kathy Stout
Pharmacy: [facility]
D/C plan: home with anticipated no needs. Family to transport at discharge.
CM will follow with discharge plan updates as hospitalization progresses
--- NOTE | 2023-12-16 13:16 | W.SUR.POST ---
Surgical Immediate Post Op
Note
Pre Op Diagnosis:
rt upj stone with oibstruction
Post Op Diagnosissame:
Procedure Performed: rt u/l/s and basket
Primary Surgeon: anselmo
Secondary Surgeons:
AnesthesiaKatin general
Estimated Blood Loss: 2cc
Fluids: nss
Drains/Shunts:6 fr 24 cc jj stent on rt
Specimens/Cultures:stone
Doppler/Duplex/Angio (Y/N):
Complications: 0
Operative Findings: lg obstructing stone rt upj stone
[2023-12-16] MEDS: SUBLIMAZE 25 MCG IV (13:43)
[2023-12-16] MEDS: ZYRTEC 10 MG PO (19:55)
[2023-12-17] MEDS: DILAUDID 0.5 MG IV ×2 (02:50→08:03)
[2023-12-17 03:01] VITALS: BP 116/53
[2023-12-17] MEDS: ROCEPHIN 1000 MG IV (05:41)
[2023-12-17] MEDS: STERILE WATER FOR INJECTION 10 ML IV (05:41)
[2023-12-17 07:10] VITALS: BP 109/58
[2023-12-17] MEDS: ENTOCORT EC 6 MG PO (08:02)
[2023-12-17] MEDS: NSS with KCL 40 MEQ 1000 IV (08:02)
[2023-12-17] MEDS: ASACOL, DELZICOL DR 1600 MG PO ×2 (08:02→20:42)
[2023-12-17] MEDS: PROTONIX 40 MG PO ×2 (08:03→20:42)
[2023-12-17] MEDS: PEPCID 20 MG PO ×2 (08:03→20:43)
[2023-12-17 08:13] LABS: Hematocrit 29.1 % (37.0-47.0); Hemoglobin 9.8 g/dL (12.0-16.0); Mean Corp Hgb Conc. 33.7 g/dL (33.0-37.0); Mean Corpuscular Hgb 27.8 pg (27.0-31.0); Mean Corpuscular Volume 82.7 fL (81.0-99.0); Mean Platelet Volume 9.6 fL (7.4-10.4); Platelet Count 174 10^3/uL (130-400); Red Blood Cell Count 3.52 10^6/uL (4.20-5.40); Red Cell Dist. Width 15.4 % (11.5-14.5); White Blood Cell Count 13.7 10^3/uL (4.8-10.8)
[2023-12-17 08:32] LABS: Blood Urea Nitrogen 11 mg/dl (7-17); Calcium 8.5 mg/dl (8.4-10.2); Carbon Dioxide 20 mmol/L (22-30); Chloride 108 mmol/L (98-107); Estimated Creatinine Clearance 93 ml/min; Glucose 113 mg/dl (70-99); Magnesium 1.9 mg/dl (1.6-2.3); Potassium 4.2 mmol/L (3.5-5.1); Sodium 137 mmol/L (135-145); eGFR > 60.00
--- NOTE | 2023-12-17 08:55 | W.PN.HOSP.TC ---
Addendum entered and electronically signed by Leighton Crocker MD 12/17/23 15:48:
Patient has sepsis, present upon admission.
Original Note:
Today's Communication/Plan
-
Discharge tomorrow
Assessment / Plan
Assessment / Plan
HPI: 58y F with PMH significant for recurrent kidney stones, chronic colitis and history of obesity s/p bariatric surgery who presents to ED complaining of R flank pain and fever.
Right UJ Stone with Obstruction
Fever
UTI
- Appreciate urology input, status post cystoscopy with right ureteral stent placement on 12/15
- Currently on IV Rocephin, will change to Bactrim
- Change IV Dilaudid to oral oxycodone, encourage patient to use
- Plan for discharge tomorrow, needs to follow-up with urology in the office for definitive stone management
Hypokalemia
- Repleted and resolved
- Hold / discontinue Lasix for now.
Colitis
- Stable at present. Continue PO medications (mesalamine, budesonide, etc).
History of DVT
DVT Prophylaxis
- Subcu Lovenox
History of Gastric Bypass
- Stable. Monitor for any further electrolyte abnormalities, etc and replace as needed.
Code Status: Full
Total time spent to see the patient on the floor, examine the patient, review data and lab results, discuss treatment plan with patient, nursing staff around 40 minutes.
Physical Exam
General: No acute distress
HEENT: Normocephalic, Atraumatic, EOMI, MMM
Respiratory: Clear to Auscultation bilaterally
Cardiac: Normal S1/S2, Regular Rate and Rhythm
GI: Soft, Nontender, Nondistended, Normal Bowel Sounds
Extremities: No Clubbing, Cyanosis, or Edema
Neuro: Nonfocal/Grossly Intact
Psych: Calm, Cooperative
Derm: No Visible lesions
Anticipated Discharge: Within 24 hours
Subjective/Interval History
-
Date of Service: December 16, 2023
Patient continuing to have right-sided pain, 8 out of 10 in intensity. No fever, no vomiting.
Objective Data
-
Labs:
Laboratory Results
12/16/23
06:11
WBC 14.5 H
Hgb 10.1 L
Hct 29.8 L
Plt Count 234
Sodium 139
Potassium 3.4 L D
Chloride 103
Carbon Dioxide 27
BUN 14
Creatinine 0.7
Glucose 100 H
Calcium 8.5
Vital Signs:
Vital Signs
Temp Pulse Resp BP Pulse Ox
97.5 F 74 18 119/67 96
12/16/23 14:30 12/16/23 14:30 12/16/23 14:30 12/16/23 14:30 12/16/23 14:30
I&O
12/15/23 12/16/23 12/17/23
06:59 06:59 06:59
Intake Total 50 / 50
Output Total 250 / 250 800 / 800
Balance -250 / -250 -750 / -750
--- NOTE | 2023-12-17 09:36 | W.PN.URO.CBU ---
Today's Communication / Plan
-
await hospitalst inut but urologicaly [id number] for d/c juan m lopez objctives met
Assessment / Plan
-
Partially obstructing right UPJ stone now lasered stented
Right renal colic
Nausea
Hypokalemia: being corrected
Bilateral nephrolithiasis
Diagnosis
-
Date of Service: December 17, 2023
-
Patient Diagnosis:
Post Op Day:
Patient Diagnosis:
Partially obstructing 8-10 mm right UPJ stone
Right renal colic
Subjective fever
Modest leukocytosis
Hypokalemia
---
Longstanding history of bilateral renal calculi in the setting of prior bariatric surgery
Subjective
-
feels much better some stet pain no systemic problems
Objective
-
Vital Signs
Temp Pulse Resp BP Pulse Ox
97.9 F 60 16 109/58 100
12/17/23 07:10 12/17/23 07:10 12/17/23 07:10 12/17/23 07:10 12/17/23 07:10
Intake and Output
12/16/23 12/17/23 12/18/23
06:59 06:59 06:59
Intake Total 1970 / 1969
Output Total 250 / 250 800 / 800
Balance -250 / -250 1170 / 1170
Intake:
Oral fluids 720 / 720
IV fluids (Total) 1250 / 1250
NSS 50 / 50
Output:
Urine, Voided 250 / 250 800 / 800
Other:
Number of approximated MODERATE 2
amounts of urine
Laboratory Results
12/17/23 07:37
12/17/23 07:37
Review of Systems
-
: Dysuria and Frequency
Physical Exam
-
General - well developed, well nourished, no acute distress
Chest - clear bilaterally
Abdomen - soft, non-tender, positive bowel sounds, no CVAT, no incisional pain or distention
Genitalia - normal
Rectal - normal
Skin - warm & dry with no rash
Neuro - AOx3, no motor deficits
Extremities - no clubbing, no cyanosis, no edema
Incision - clean, dry
Dressing - clean, dry, intact
Care Review
Data Reviewed
Discussed with: Hospitalist
CT Scan: Image Pers Reviewed
[2023-12-17 11:00] VITALS: BP 121/55
[2023-12-17] MEDS: ROXICODONE 5 MG PO (12:34)
--- NOTE | 2023-12-17 14:27 | PN.CDI ---
CDI
- -
CDI:
Physician Documentation Request
Admit Date: 12/16/23 04:50
Dear Doctor Do,
Clinical Indicators:
Patient admitted with Right UJ Stone with Obstruction; s/p right double-J stent placement 12/15.
12/15 H & P, '...returned to the ED this evening with persistent R flank pain and new fever at home to 101.'
12/15 Update note, '...infected right ureteral stone with obstruction.'
12/15 Operative Report, 'possible sepsis syndrome.'
WBC on admission:
12/16/23
00:56
WBC 15.1 H
Please clarify which of the following most accurately describes the status of the patient's infection:
Sepsis, POA
- Systemic manifestations of infection, with 2 or more SIRS criteria which include:
- Fever >100.4 degrees F or hypothermia < 96.8 degrees F
- Leukocytosis - WBC > 12,000 or leukopenia - WBC < 4,000 or > 10% bands
- Tachycardia > 90 beats per minute
- Tachypnea - RR > 20 breaths per minute or PaCO2 , 32mmHg
Source: Merck Manual 2013
- Indicate the known or suspected organism
Infected right ureteral stone Only, Without Systemic Illness
Other, please specify
Use of terms such as suspected, likely, concern for, or probable (associated with a specific diagnosis that is being evaluated, monitored, or treated as if it exists) are acceptable and can be coded in the inpatient setting, when documented at the
time of discharge.
Thank you,
Cece Mar RN BSN
CDI Specialist
available via tiger text
Please use your independent medical judgment in providing your response.
[2023-12-17 15:10] VITALS: BP 121/50
[2023-12-17] MEDS: BACTRIM DS 800 MG/160 MG 1 TABLET PO (15:56)
[2023-12-17] MEDS: BACTRIM DS 800 MG/160 MG PO (16:13)
[2023-12-17] MEDS: ROXICODONE 10 MG PO ×2 (17:33→22:11)
[2023-12-17] MEDS: DILAUDID 0.25 MG IV (21:05)
[2023-12-17] MEDS: ZYRTEC 10 MG PO (21:05)
[2023-12-17 23:50] VITALS: BP 98/60
[2023-12-18] MEDS: ROXICODONE 10 MG PO ×2 (02:28→06:37)
[2023-12-18 06:57] LABS: Hematocrit 28.8 % (37.0-47.0); Hemoglobin 9.3 g/dL (12.0-16.0); Mean Corp Hgb Conc. 32.3 g/dL (33.0-37.0); Mean Corpuscular Hgb 27.7 pg (27.0-31.0); Mean Corpuscular Volume 85.7 fL (81.0-99.0); Mean Platelet Volume 10.2 fL (7.4-10.4); Platelet Count 206 10^3/uL (130-400); Red Blood Cell Count 3.36 10^6/uL (4.20-5.40); Red Cell Dist. Width 15.6 % (11.5-14.5); White Blood Cell Count 12.7 10^3/uL (4.8-10.8)
[2023-12-18 07:15] VITALS: BP 119/45
[2023-12-18 07:35] LABS: Blood Urea Nitrogen 14 mg/dl (7-17); Calcium 8.3 mg/dl (8.4-10.2); Carbon Dioxide 26 mmol/L (22-30); Chloride 106 mmol/L (98-107); Estimated Creatinine Clearance 93 ml/min; Glucose 89 mg/dl (70-99); Potassium 4.2 mmol/L (3.5-5.1); Sodium 140 mmol/L (135-145); eGFR > 60.00
--- NOTE | 2023-12-18 08:03 | W.PN.HOSP.TC ---
Today's Communication/Plan
-
Discharge today
Assessment / Plan
Assessment / Plan
HPI: 58y F with PMH significant for recurrent kidney stones, chronic colitis and history of obesity s/p bariatric surgery who presents to ED complaining of R flank pain and fever.
Right UJ Stone with Obstruction
Sepsis, POA
UTI
- Appreciate urology input, status post cystoscopy with right ureteral stent placement on 12/15
- Status post IV Rocephin, currently on Bactrim to complete a 14-day course
- Medically stable for discharge today, needs to follow-up with urology in the office for definitive stone management
Hypokalemia
- Repleted and resolved
- Can resume Lasix upon discharge
Colitis
- Stable at present. Continue PO medications (mesalamine, budesonide, etc).
History of DVT
DVT Prophylaxis
- Subcu Lovenox
History of Gastric Bypass
- Stable. Monitor for any further electrolyte abnormalities, etc and replace as needed.
Code Status: Full
Physical Exam
General: No acute distress
HEENT: Normocephalic, Atraumatic, EOMI, MMM
Respiratory: Clear to Auscultation bilaterally
Cardiac: Normal S1/S2, Regular Rate and Rhythm
GI: Soft, Nontender, Nondistended, Normal Bowel Sounds
Extremities: No Clubbing, Cyanosis, or Edema
Neuro: Nonfocal/Grossly Intact
Psych: Calm, Cooperative
Derm: No Visible lesions
Anticipated Discharge: Today
Subjective/Interval History
-
Date of Service: December 17, 2023
Continues to have right-sided pain, improved from prior. No fever, no vomiting.
Objective Data
-
Labs:
Laboratory Results
12/17/23
07:37
WBC 13.7 H
Hgb 9.8 L
Hct 29.1 L
Plt Count 174 D
Sodium 137
Potassium 4.2
Chloride 108 H
Carbon Dioxide 20 L
BUN 11
Creatinine 0.5 L
Glucose 113 H
Calcium 8.5
Vital Signs:
Vital Signs
Temp Pulse Resp BP Pulse Ox
98.4 F 67 16 121/55 100
12/17/23 11:00 12/17/23 11:00 12/17/23 11:00 12/17/23 11:00 12/17/23 11:22
I&O
12/16/23 12/17/23 12/18/23
06:59 06:59 06:59
Intake Total 1969 / 1969
Output Total 250 / 250 800 / 800
Balance -250 / -250 1170 / 1170
[2023-12-18] MEDS: ENTOCORT EC 6 MG PO (08:21)
[2023-12-18] MEDS: PEPCID 20 MG PO (08:21)
[2023-12-18] MEDS: PROTONIX 40 MG PO (08:21)
[2023-12-18] MEDS: ASACOL, DELZICOL DR 1600 MG PO (08:21)
[2023-12-18] MEDS: BACTRIM DS 800 MG/160 MG 1 TABLET PO (08:21)
--- NOTE | 2023-12-18 09:49 | W.PN.URO.CBU ---
Today's Communication / Plan
-
per hospitalist but d/c imminent
Assessment / Plan
-
Partially obstructing right UPJ stone now lasered stented
Right renal colic
Nausea
Hypokalemia: being corrected
Bilateral nephrolithiasis
Diagnosis
-
Date of Service: December 18, 2023
-
Patient Diagnosis:
Post Op Day:
Patient Diagnosis:
Post Op Day:
Patient Diagnosis:
Partially obstructing 8-10 mm right UPJ stone
Right renal colic
Subjective fever
Modest leukocytosis
Hypokalemia
---
Longstanding history of bilateral renal calculi in the setting of prior bariatric surgery
Subjective
-
much better some stent pain no systemic complaints
Objective
-
Vital Signs
Temp Pulse Resp BP Pulse Ox
98.7 F 58 16 119/45 96
12/18/23 07:15 12/18/23 07:15 12/18/23 07:15 12/18/23 07:15 12/18/23 07:15
Intake and Output
12/17/23 12/18/23 12/19/23
06:59 06:59 06:59
Intake Total 1970 / 1970 2019
Output Total 800 / 800
Balance 1170 / 1170 2019
Intake:
Oral fluids 720 / 720 1620 / 1620
IV fluids (Total) 1250 / 1250
NSS 50 / 50
IV piggybacks 400 / 400
Output:
Urine, Voided 800 / 800
Other:
Number of approximated MODERATE 2 3
amounts of urine
Laboratory Results
12/18/23 05:49
12/18/23 05:49
Review of Systems
-
: Frequency and Flank Pain
Physical Exam
-
General - well developed, well nourished, no acute distress
Chest - clear bilaterally
Abdomen - soft, non-tender, positive bowel sounds, no CVAT, no incisional pain or distention
Genitalia - normal
Rectal - normal
Skin - warm & dry with no rash
Neuro - AOx3, no motor deficits
Extremities - no clubbing, no cyanosis, no edema
Incision - clean, dry
Dressing - clean, dry, intact
Care Review
Data Reviewed
Discussed with: Nursing
[2023-12-18] MEDS: ROXICODONE 5 MG PO (10:41)
--- NOTE | 2023-12-18 10:59 | CM ---
Patient seen at bedside.
Discharge today.
No needs.
PLAN: Discharge to home, no needs.
to transport.
[2023-12-18 11:16] VITALS: BP 123/57
== END 2023-12-18 11:20 | disposition home or self-care (01) | DRG 854 ==
LOC: 2 NORTH 04:50
PROVIDERS: Clinical Nurse Specialist Family Health; ADMITTING PHYSICIAN Hospitalist; ATTENDING PHYSICIAN Family Medicine; EMERGENCY PHYSICIAN Emergency Medicine; FAMILY PHYSICIAN Family Medicine; OTHER PHYSICIAN Specialist
PROC: 0TC68ZZ Extirpation of Matter from Right Ureter, Via Natural or Artificial Opening Endoscopic (ICD-10-PCS; 2023-12-16)
PROC: 0T768DZ Dilation of Right Ureter with Intraluminal Device, Via Natural or Artificial Opening Endoscopic (ICD-10-PCS; 2023-12-16)
DX: A41.9 Sepsis, unspecified organism (principal); N13.6 Pyonephrosis; E87.6 Hypokalemia; K21.9 Gastro-esophageal reflux disease without esophagitis; K52.9 Noninfective gastroenteritis and colitis, unspecified; Z79.899 Other long term (current) drug therapy; Z98.84 Bariatric surgery status; Z87.19 Personal history of other diseases of the digestive system; Z86.19 Personal history of other infectious and parasitic diseases; Z86.718 Personal history of other venous thrombosis and embolism; Z87.891 Personal history of nicotine dependence; Z90.710 Acquired absence of both cervix and uterus; Z87.442 Personal history of urinary calculi; Z90.49 Acquired absence of other specified parts of digestive tract; Z88.0 Allergy status to penicillin; Z88.2 Allergy status to sulfonamides; Z88.5 Allergy status to narcotic agent; Z88.8 Allergy status to other drugs, medicaments and biological substances
CPT/HCPCS: 74018; 76000; 76775; 80048; 80053; 81003; 81015; 82365; 83605; 83735; 83880; 84484; 85025; 85027; 96361; 96374; 96375; 99285; A4300; C1894; C2617

== ENCOUNTER → 2023-12-30 15:03 | Outpatient (REF) | payer OTHER, MEDICAID, SELFPAY | LOC: RAD 15:03 | PROVIDERS: ATTENDING PHYSICIAN Specialist; FAMILY PHYSICIAN Family Medicine | DX: N20.0 Calculus of kidney (principal) | CPT/HCPCS: 74018 ==

== ENCOUNTER 2024-08-12 12:51 | Emergency (ER) | payer OTHER, MEDICAID, SELFPAY ==
[2024-08-12] VITALS (8 sets, daily range): BP systolic 108–157; BP diastolic 52–92; BMI 25.0
[2024-08-12 17:17] LABS: % Basophils 0.6 % (0-2); % Eosinophils 0.7 % (0-6); % Immature Granulocytes 0.3 % (0-0.5); % Monocytes 5.6 % (1.7-9.3); % Neutrophils 58.8 % (42.2-75.2); Absolute Basophils 0.1 10^3/uL (0-0.2); Absolute Eosinophils 0.1 10^3/uL (0-0.7); Absolute Lymphocytes 3.4 10^3/uL (1.2-3.4); Absolute Monocytes 0.6 10^3/uL (0.1-0.6); Absolute Neutrophils 5.9 10^3/uL (1.4-6.5); Hematocrit 34.3 % (37.0-47.0); Hemoglobin 10.9 g/dL (12.0-16.0); Mean Corp Hgb Conc. 31.8 g/dL (33.0-37.0); Mean Corpuscular Hgb 23.6 pg (27.0-31.0); Mean Corpuscular Volume 74.4 fL (81.0-99.0); Mean Platelet Volume 9.5 fL (7.4-10.4); Nucleated Red Blood Cells % 0 %; Platelet Count 276 10^3/uL (130-400); Red Blood Cell Count 4.61 10^6/uL (4.20-5.40); Red Cell Dist. Width 16.4 % (11.5-14.5)
[2024-08-12 17:23] LABS: ALT (SGPT) 22 U/L (0-35); AST (SGOT) 26 U/L (14-36); Albumin 4.3 g/dl (3.5-5.0); Alkaline Phosphatase 72 U/L (38-126); Blood Urea Nitrogen 12 mg/dl (7-17); Calcium 9.3 mg/dl (8.4-10.2); Carbon Dioxide 30 mmol/L (22-30); Chloride 101 mmol/L (98-107); Estimated Creatinine Clearance 93 ml/min; Glucose 96 mg/dl (70-99); Potassium 3.8 mmol/L (3.5-5.1); Sodium 140 mmol/L (135-145); Total Bilirubin 0.4 mg/dl (0.2-1.3); eGFR > 60.00
--- NOTE | 2024-08-12 17:30 | ED.GENMED ---
History of Present Illness
General
Chief Complaint: Chest Pain
Source: patient
Exam Limitations: none
Time Seen by Provider: 08/12/24 17:02
History of Present Illness
History of Present Illness:
58yoF with a history of colitis, prior C.diff infection s/p fecal transplant, GERD, and allergies presenting for evaluation of chest pain. Patient had routine lab work about a week ago and was found to have a hemoglobin of 9.8 as well as a low iron
saturation. She saw her PCP 2 days ago for these findings. Patient is scheduled to start iron infusions next week. Patient started to experience some chest pressure this morning around 9 AM after eating breakfast. The pressure has been constant
throughout the day. Pain is worse with movement. Nothing else seems to make the pain better or worse. She checked her pulse ox at home and her oxygen saturation was reportedly 70% so she came to the ED. Oxygen saturation is 100% in triage and
100% during initial exam. She denies any shortness of breath, syncope, hematochezia, melena.
Past History
Past History
ED Past Medical History: Asthma, Fibromyalgia, GERD, HTN, NIDDM (Diet controlled byfore gastric bypass), Psychiatric (Depression), Other (Recurrent C. difficile enterocolitis. Chronic abdominal pain with narcotic dependence, Chronic colitis,
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
transplant, Ovarian cyst, Cellulitis, anemia, )
ED Past Surgical History: Appendectomy, Bowel resection (Gastric bypass), Cholecystectomy, Gynecological (Hysterectomy with bladder lift, tubal), Orthopedic (Right ankle surgery), Urological (Lithotripsy with bilateral ureteral stents November 2016)
and Other (Gastric bypass , ureteroscopy with bilateral ureteral stents placed September 2009. Left renal pelvis lithotripsy October 10, 2009. Abd mesh placed after hernia repair,)
Social History
Tobacco: Former smoker
Alcohol: Occasional
Drug: None
Personal:
Living: with family
Employment: Public assistance
Family History
Family History: Other (One rectal cancer, COPD )
Phy Exam
General Physical Exam
General Presentation: well appearing and no apparent distress
General Skin: warm and dry
General Habitus: normal
General Mental: alert
ENT Exam
ENT Exam: normocephalic
Cardiovascular Exam
Cardiovascular Exam: regular rate/rhythm and no murmur
Pulmonary Exam
Pulmonary Exam: lungs clear, no respiratory distress, no rales, no crackles, no rhonchi and other (+There is tenderness to palpation of the center chest. No skin changes.)
Neurological Exam
Neurological Exam: alert
Gustavo Coma Scale
Eye Opening: Spontaneous
Verbal Response: Oriented
Motor Response: Obeys Commands
GCS Total Score: 15
Skin Exam
Skin Exam: normal color and warm/dry
Psychiatric Exam
Psychiatric Exam: normal mood/affect
Scores
Heart Score for Chest Pain Patients
STEMI patient?: No
History: Moderately Suspicious
ECG: Normal
Age: >45 - <65 years
Risk Factors: 1 or 2 Risk Factors
Troponin: </= Normal Limit
Heart Score for Chest Pain Patients: 3
Heart Score Risk: 2.5% MACE over next 6 weeks
Course
Orders/Labs/Results
Orders:
Orders
08/12/24 12:57
Electrocardiogram (*1) Urgent
Reason for Study: Chest Pain
EKG- Treatment ONCE
08/12/24 17:00
Complete Blood Count/With Diff Urgent
Comprehensive Metabolic Panel Urgent
Troponin I Urgent
08/12/24 17:22
Cardiac Monitoring- Treatment ONCE
CR Chest - 2 Views Urgent
Comment:
Reason For Exam: CP
Abnormal Lab Results
08/12/24
17:00
Hgb 10.9 L g/dL
(12.0-16.0)
Hct 34.3 L %
(37.0-47.0)
MCV 74.4 L fL
(81.0-99.0)
MCH 23.6 L pg
(27.0-31.0)
MCHC 31.8 L g/dL
(33.0-37.0)
RDW 16.4 H %
(11.5-14.5)
Creatinine 0.5 L mg/dL
(0.6-1.0)
08/12/24 17:00
08/12/24 17:00
Vital Signs
Initial and Last Documented VS:
Initial Vital Signs
Temp Pulse Resp BP
98.6 F 76 16 157/74
08/12/24 12:55 08/12/24 12:55 08/12/24 12:55 08/12/24 12:55
Last Documented Vital Signs
Temp Pulse Resp BP Pulse Ox
98.6 F 70 21 121/52 99
08/12/24 12:55 08/12/24 19:15 08/12/24 19:15 08/12/24 19:00 08/12/24 19:15
MDM/Problems Addressed
Differential Diagnosis Includes:
58yoF here with chest pain. Central pressure that began after eating breakfast. Worse with movement. VSS. She reports that her oxygen saturation was low at home although is 100% during examination. She is well-appearing in no acute distress. There
is reproducible chest wall tenderness on exam. Differential diagnosis includes but is not limited to: Musculoskeletal, esophagitis, pneumonia, ACS
Initial ED plan: Check cardiac labs, EKG, and chest x-ray.
*EKG
Interpreted by ED Provider?: Yes
EKG Intrepretation Date: 08/12/24
Heart Rate: 70
Rate: normal
Rhythm: sinus
[place]: normal axis
Interval: normal interval
QRS Pattern: normal QRS
Ischemia: no ischemia
*Critical Care Note
Total Time (30-74mins, 75-104mins- exclusive of procedures): Not Applicable
Update Note
Update Note:
EKG shows normal sinus rhythm without ischemic changes and troponin within normal limits. Remainder of labs overall unremarkable. Hemoglobin is 10.9, up from 9.8 on outpatient labs last week. Chest x-ray is clear. No indication for
hospitalization. Suspect musculoskeletal pain given reproducible symptoms and the fact that pain is worse with movement. Supportive care discussed. Advised close follow-up with PCP and ED return precautions reviewed. Patient in agreement with
plan and was discharged in stable condition.
ED Attending Note
-
Portions of this chart may have been created with voice recognition software.� Occasional wrong word or��sound alike� substitutions may have occurred due to the inherent limitations of voice recognition software.
Discharge Plan
Departure
Patient Disposition: Home (Routine Discharge)
Date of Disposition: 08/12/24
Time of Disposition: 19:10
Patient with high blood pressure during this ER visit?: No
Discharge Problem:
Chest pain
Instructions: Chest Pain PCP Follow Up
Prescriptions:
No Action
pantoprazole 40 MG tablet,delayed release (DR/EC)
40 mg PO BID
furosemide 20 MG tablet
20 mg PO DAILY
budesonide 3 MG capsule,delayed,extend.release
6 mg PO DAILY
Humira 40 MG/0.8 ML syringe kit
40 mg SC TH
famotidine 20 MG tablet
20 mg PO BID
tramadol 50 MG tablet
50 mg PO DAILY
Patient Comments:
07/08/2023: las filled 06/18/23, 30 tabs for 30 days from [facility]
High Potency Probiotic 1 CAP capsule
1 cap PO TID
multivitamin with folic acid [Tab-A-Madiha] 1 TABLET tablet
1 tab PO TID
mesalamine 800 mg Tablet,Delayed Release (Dr/Ec)
1,600 mg PO BID
cetirizine 10 mg Tablet
10 mg PO HS
sulfamethoxazole-trimethoprim 800-160 mg Tablet
1 tab PO BID 12 Days Qty: 24 0RF
oxycodone 5 mg tablet
5 mg PO TID PRN (Reason: Pain) Qty: 30 0RF
Referrals:
Kathy Doherty MD [Family Provider] -
Activity Restrictions/Additional Instructions:
You may try heat or Tylenol as needed for your pain.
Please call tomorrow to schedule a follow appointment. Return to the ER immediately for any new or worsening symptoms.
Interventions
Interventions:
*Risk Screen - Suicide Last Done: 08/12/24 12:57
*General Assessment Last Done: 08/12/24 17:03
*Neglect/Abuse Screening Last Done: 08/12/24 12:57
*ED- Fall Risk Assessment Last Done: 08/12/24 17:03
*Nursing Disposition Last Done: 08/12/24 19:16
ED- Cardiac Assessment Last Done: 08/12/24 17:03
Discharge Date and Time
Discharge Date/Time: 08/12/24 19:17
Print Language: IRISH
[2024-08-12 17:34] LABS: Troponin I < 0.012 ng/ml
== END 2024-08-12 19:17 | disposition home or self-care (01) ==
LOC: EMR 12:51
PROVIDERS: Emergency Medicine; EMERGENCY PHYSICIAN Emergency Medicine; FAMILY PHYSICIAN Family Medicine
DX: R07.89 Other chest pain (principal); E11.9 Type 2 diabetes mellitus without complications; I10 Essential (primary) hypertension; J45.909 Unspecified asthma, uncomplicated; Z98.84 Bariatric surgery status; Z90.49 Acquired absence of other specified parts of digestive tract; Z90.710 Acquired absence of both cervix and uterus; Z87.891 Personal history of nicotine dependence
CPT/HCPCS: 99285; 71046; 80053; 84484; 85025; 93005

== ENCOUNTER 2024-08-17 11:31 | Outpatient (RCR) | payer OTHER, MEDICAID, SELFPAY ==
[2024-08-17 11:40] VITALS: BP 138/57
[2024-08-17] MEDS: VENOFER 110 MG IV (11:54)
[2024-08-17 13:19] VITALS: BP 115/61
== END 2024-08-18 08:54 | disposition home or self-care (01) ==
LOC: OID 11:31
PROVIDERS: ATTENDING PHYSICIAN Family Medicine
DX: D50.9 Iron deficiency anemia, unspecified (principal); E87.6 Hypokalemia; D84.9 Immunodeficiency, unspecified
CPT/HCPCS: 96365; J1756

== ENCOUNTER 2024-09-14 11:30 | Outpatient (RCR) | payer OTHER, MEDICAID, SELFPAY ==
[2024-08-24 11:35] VITALS: BP 131/55
[2024-08-24] MEDS: VENOFER 110 MG IV (11:37)
[2024-08-24 12:47] VITALS: BP 117/62
[2024-08-31 11:40] VITALS: BP 136/54
[2024-08-31] MEDS: VENOFER 110 MG IV (11:56)
[2024-08-31 13:20] VITALS: BP 115/58
[2024-09-07 11:41] VITALS: BP 129/60
[2024-09-07] MEDS: VENOFER 110 MG IV (11:57)
[2024-09-07 13:23] VITALS: BP 109/54
[2024-09-14 12:00] VITALS: BP 115/52
[2024-09-14] MEDS: VENOFER 110 MG IV (12:06)
[2024-09-14 13:33] VITALS: BP 113/51
== END 2024-09-15 10:30 | disposition home or self-care (01) ==
LOC: OID 11:30
PROVIDERS: ATTENDING PHYSICIAN Family Medicine
DX: D50.8 Other iron deficiency anemias (principal); D50.9 Iron deficiency anemia, unspecified
CPT/HCPCS: 96365; J1756